=== PATIENT | male | born 1940 | race Caucasian/White ===

== ENCOUNTER 2020-03-24 13:12 | IRF | payer MEDICARE, SELFPAY ==
[2020-03-24 13:15] VITALS: BP 107/50; PULSE 70; RESP 18; TEMP 35.9; O2SAT 99; BMI 21.3
--- NOTE | 2020-03-24 13:28 | ADMGEN ---
This patient, Wagner Garland, was admitted to [facility] Room 223-01. Patient/family oriented to hospital policies and general routines including ID bracelet, bed and alarms, visiting hours, pain management, procedures, bathroom and other care routines, personal items, smoking policy, room service/diet, and visiting hours. Valuables list has been completed. Information on how to activate the Rapid Response Team has been discussed. Patient/Family are encouraged to report perceived risks to care and to ask questions if they do not understand what they are told or what they should do.
[2020-03-24 14:55] VITALS: BMI 21.3
[2020-03-24] MEDS: ALPRAZolam (*CRX) 0.5 MG TABLET 1 MG PO ×2 (18:06→20:18)
[2020-03-24] MEDS: APIXABAN 5 MG TABLET PO (18:08)
[2020-03-24] MEDS: ZOLPIDEM TARTRATE (*CRX) 5 MG TABLET 10 MG PO (20:18)
[2020-03-24] MEDS: LOPERAMIDE HCL 2 MG CAPSULE PO (20:18)
[2020-03-24] MEDS: ATORVASTATIN 40 MG TABLET PO (20:18)
[2020-03-24 22:00] VITALS: BP 122/46; PULSE 70; RESP 20; TEMP 36.7; O2SAT 100
[2020-03-25 04:58] LABS: Basophils Percent Auto 0.4 % (0.2-1.2); Eosinophils Absolute Auto 0.3 K/mm3 (0-0.3); Eosinophils Percent Auto 3.1 % (0-4.4); Hematocrit 33.3 % (42.0-52.0); Hemoglobin 10.8 g/dL (14.0-18.0); Immature Granulocyte Absolute 0.05 K/mm3 (0.00-0.031); Immature Granulocyte Percent A 0.5 % (0-0.5); Lymphocytes Absolute Auto 0.86 K/mm3 (0.9-3.2); Lymphocytes Percent Auto 8.7 % (18.3-44.2); Mean Corpuscular HGB Conc 32.4 g/dl (32-36); Mean Corpuscular Hemoglobin 30.7 pg (26-34); Mean Corpuscular Volume 94.6 fl (80-100); Monocytes Absolute Auto 1.2 K/mm3 (0.1-0.6); Neutrophils Absolute Auto 7.4 K/mm3 (1.3-6.7); Neutrophils Percent Auto 75.3 % (45.5-73.1); Platelet Count Result 144 k/mm3 (150-375); Red Blood Count 3.52 M/mm3 (4.6-6.20); Red Cell Distribution Width 13.3 % (11.5-14.5); White Blood Count 9.8 K/mm3 (4.5-10.0)
[2020-03-25 05:15] LABS: Potassium 3.6 mmol/L (3.4-5.0)
[2020-03-25 05:25] LABS: Anion Gap 8 mmol/L (8-16); Blood Urea Nitrogen 20 mg/dL (9-20); Calcium 8.7 mg/dL (8.4-10.2); Carbon Dioxide 29 mmol/L (22-30); Chloride 103 mmol/L (98-107); Estimated CRCL calculation 33 ml/min; Estimated Glomerular Filt Rate 49; Glucose 119 mg/dL (75-110); HDL Direct 28 mg/dL; Sodium 140 mmol/L (137-145)
[2020-03-25 05:49] LABS: LDL Cholesterol Direct 47 mg/dL
[2020-03-25 06:00] VITALS: BP 106/58; PULSE 100; RESP 16; TEMP 36.6; O2SAT 100
[2020-03-25 06:06] LABS: Cholesterol 102 mg/dL (0-200); Triglycerides 125 mg/dL (<150)
[2020-03-25] MEDS: LEVOTHYROXINE SODIUM 75 MCG TABLET PO (06:12)
[2020-03-25 08:33] VITALS: PULSE 68
[2020-03-25] MEDS: ALPRAZolam (*CRX) 0.5 MG TABLET 1 MG PO ×4 (08:33→20:44)
[2020-03-25] MEDS: AMIODARONE HCL 200 MG TABLET PO (08:33)
[2020-03-25] MEDS: APIXABAN 5 MG TABLET PO ×2 (08:34→17:00)
[2020-03-25 08:35] VITALS: PULSE 68
[2020-03-25] MEDS: buPROPion HCL XL (24 HR) 150 MG TABCR 300 MG PO (08:35)
[2020-03-25] MEDS: TAMSULOSIN HCL 0.4 MG CAPSULE PO (08:35)
[2020-03-25] MEDS: PANTOPRAZOLE 40 MG TABLET PO (08:35)
[2020-03-25] MEDS: DIGOXIN TAB 125 MCG TABLET PO (08:35)
--- NOTE | 2020-03-25 11:00 | PM.IMHP ---
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 The family reported the patient was found down near his bed was unable to communicate. The patient was in his usual state of health approximately 12 hours prior to presentation. 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 The upon arrival to the emergency room he had an initial NIH SS of 9. The CT showed no vessel occlusion or bleed an MRI was on tenable due to the patient having incompatible defibrillator. TPA was not administrated he was outside the window. Neurology was consulted and the patient was placed on aspirin atorvastatin and Lovenox. Apparently the patient was recently admitted to [facility] on March 04, 2020 for lower GI bleed hypotension and hemoglobin of 7.9. EGD showed no gastritis or active ulcers. Colonoscopy reported a possible ischemic colitis of the sigmoid colon. 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 His clinical presentation would feet and infarct in the left middle cerebral artery territory. Transthoracic echocardiogram showed distended left atrium and wall motion abnormalities. Cerebral angiogram did not show stenosis. The patient demonstrated mild expressive / receptive aphasia with fine word finding and difficulty answering high level questions. Upon admission the patient was initially unable to pass the bedside swallow evaluation however after speech and language pathologist evaluation and regular consistent diet with restriction of cardiac/ consistent carb is recommended as his A1c is 5.8. Speech therapy recommended to follow patient to assess diet tolerance and see speech and language deficits. Physical deficit and cold dysphagia a mild expressive receptive aphasia right-sided weakness cognitive deficit and speech deficit he is awake and alert oriented x3 the patient will be discharged T on Eliquis for DVT prophylaxis or for secondary stroke prevention The patient has not traveled outside the [place] contact with someone who is ill that has traveled outside the [place] in the past 21 days. The patient has not traveled to an area of the [place] that is experiencing known transmission of the Coronavirus and has not had close personal contact with anyone that has. The patient does not have a fever. The patient is not experiencing low respiratory illness symptoms. Therapy was initiated at the acute care facility and the patient was transferred to us from [facility] on March 24, 2020. The patient was examined by myself briefly many arrived yesterday however it complete examination was performed at 11:00 a.m. on March 25, 2020 The patient has had no major surgery in the last 10 days. The patient had falls in the past year. He the patient has had falls with injuries in the past year. No major surgeries had colonoscopy in February 2020 Past medical history, atrial fibrillation, hypertension, coronary artery disease, BPH, depression, pacemaker implantation, myocardial infarction, colitis. Past surgical history CABG Social history, patient lives with his and daughter in a one-story home with the basement and 2 steps to enter. Son lives nearby and can assist as needed. The patient was independent in all ADLs, IADLs LEs, and mobility without an assistive did a
[2020-03-25] MEDS: ACETAMINOPHEN 500 MG TABLET 1000 MG PO (12:06)
[2020-03-25] MEDS: BENZOCAINE/MENTHOL (*BKC) 18 EA LOZENGE 1 LOZENGE PO (12:13)
[2020-03-25 12:51] VITALS: BMI 21.3
[2020-03-25 14:00] VITALS: BP 103/50; PULSE 70; RESP 16; TEMP 36.4; O2SAT 100
--- NOTE | 2020-03-25 14:15 | PCDIET ---
Pt sleeping during time of second visit for stroke education; will revisit at later time.
--- NOTE | 2020-03-25 14:17 | PCNSR ---
On 03/25/20, the student, Trinidad Crabtree, provided care and completed [facility] documentation on this patient. I have reviewed the student's documentation and agree with the findings.
[2020-03-25 20:05] VITALS: BP 115/53; PULSE 70; RESP 18; TEMP 36.2; O2SAT 97
[2020-03-25] MEDS: ZOLPIDEM TARTRATE (*CRX) 5 MG TABLET 10 MG PO (20:44)
[2020-03-25] MEDS: ATORVASTATIN 40 MG TABLET PO (20:44)
[2020-03-26 04:55] VITALS: BP 101/33; PULSE 71; RESP 18; TEMP 36.3; O2SAT 99
[2020-03-26] MEDS: LEVOTHYROXINE SODIUM 75 MCG TABLET PO (06:01)
[2020-03-26] MEDS: PANTOPRAZOLE 40 MG TABLET PO (08:39)
[2020-03-26] MEDS: buPROPion HCL XL (24 HR) 150 MG TABCR 300 MG PO (08:39)
[2020-03-26] MEDS: APIXABAN 5 MG TABLET PO ×2 (08:39→17:36)
[2020-03-26] MEDS: TAMSULOSIN HCL 0.4 MG CAPSULE PO (08:39)
[2020-03-26] MEDS: ALPRAZolam (*CRX) 0.5 MG TABLET 1 MG PO ×4 (08:39→20:42)
[2020-03-26 14:00] VITALS: BP 112/58; PULSE 52; RESP 16; TEMP 36.5; O2SAT 94
--- NOTE | 2020-03-26 14:45 | PCNSR ---
On 03/26/20, the student, Trinidad Crabtree, provided care and completed [facility] documentation on this patient. I have reviewed the student's documentation and agree with the findings.
--- NOTE | 2020-03-26 15:49 | RPD ---
INDIVIDUALIZED PLAN OF CARE FOR Wagner Garland Brief Synthesis of Pre-Admission Screen, Post-Admission Evaluation and Therapy Evaluations: The patient presents to rehab with an ischemic stroke in left MCA territory. Comorbidities include hypokalemia, anemia, right-side weakness, dysphagia, aphasia, atrial fibrillation, hypertension, symptomatic LICA stenosis, CAD, BPH, depression, pacemaker placement, and anxiety.The complexity of the patient's medical management, nursing, and therapy needs require an inpatient rehab hospital stay with a physician-led interdisciplinary team approach. The patient?s needs will be best met in an intensive program vs. at a lower level of care. The patient requires physician services for neurology services, medical oversight, and coordination of care. Emotional needs will be monitored as depression is a common sequelae of stroke. The patient needs physician monitoring and treatment of anemia, hypokalemia, anemia, right-side weakness, dysphagia, aphasia, atrial fibrillation, hypertension, monitoring for adverse reactions to new medications, monitoring of infection. The patient requires nursing services for frequent neuro checks, anticoagulation therapy, medication management and education, pressure relief and skin care management, monitoring of labs, bowel and bladder training, diabetes management and education, IV administration, and fall/safety precautions. Deficits include:24-Hour Rehab Nursing Care, Nutrition Services, Occupational Therapy, Physical Therapy, Physician, Hotel Or Motel Manager, and Speech Therapy. Hotel Or Motel Manager/Case Management for: Discharge Planning and Patient/Family Counseling Physical Therapy: 5 days per week for 60 minutes. Treatments may include: Therapeutic Exercise, Gait Training, Neuromuscular Re-education, Transfer Training, Community Reintegration, Bed Mobility, Patient/Family Education, Wheelchair Mobility Group Therapy/Concurrent Therapy Rationales: -Improve attention span during functional activities in a distracted environment. -Enhance problem solving and/or adequate judgment skills during functional activities in a distracted environment. -Promote increased safety awareness in a distracted environment to reduce fall risk with functional tasks, transfers, and ambulation to allow a more safe, self-sufficient return to the home environment. -Improve dynamic balance skills to promote safety and independence with functional activities in a distracted environment for maximum gain. Occupational Therapy: 5 days per week for 60 minutes. Treatments may include: Therapeutic Exercise, Therapeutic Activity, Cognitive Training, Self-Care Transfer Training, Community Reintegration, Home Management, Patient/Family Education, Wheelchair Mobility Training, Energy Conservation Training Group Therapy/Concurrent Therapy Rationales: -Allow therapist to observe and teach generalization and carry-over of skills learned in individual therapy. -Enhance problem solving and sequencing skills during therapeutic activities in a distracted environment. -Promote increased safety awareness in a realistic setting to reduce fall risk with functional tasks due to visual and verbal distractions. -Increase functional level with ADLs, ADL transfers and use of adaptive equipment through therapeutic activities with others while promoting safety to allow a more safe, self-sufficient return home. Speech Therapy: 5 days per week for 60 minutes. Treatments may include: Dysphasia Therapy, Speech/Language/Communication Therapy, Cognitive Training, Patient/Family Education Group Therapy/Concurrent Therapy - Rationale: -Allow therapist to observe and teach generalization and carry-over of skills learned in individual therapy. -Improve comprehension skills with complex or abstract ideas through discussion in a realistic setting. -Enhance problem solving skills with complex issues during activities in a distracted environment. -Promote increased memory ski
[2020-03-26 20:17] VITALS: BP 116/51; PULSE 70; RESP 18; TEMP 36.3; O2SAT 98
[2020-03-26] MEDS: ZOLPIDEM TARTRATE (*CRX) 5 MG TABLET 10 MG PO (20:42)
[2020-03-26] MEDS: ATORVASTATIN 40 MG TABLET PO (20:42)
[2020-03-27 05:32] VITALS: BP 102/49; PULSE 70; RESP 18; TEMP 35.8; O2SAT 100
[2020-03-27] MEDS: LEVOTHYROXINE SODIUM 75 MCG TABLET PO (06:20)
[2020-03-27 08:43] VITALS: PULSE 70
[2020-03-27] MEDS: AMIODARONE HCL 200 MG TABLET PO (08:43)
[2020-03-27] MEDS: APIXABAN 5 MG TABLET PO ×2 (08:43→17:54)
[2020-03-27] MEDS: ALPRAZolam (*CRX) 0.5 MG TABLET 1 MG PO ×4 (08:43→20:56)
[2020-03-27 08:44] VITALS: PULSE 70
[2020-03-27] MEDS: PANTOPRAZOLE 40 MG TABLET PO (08:44)
[2020-03-27] MEDS: DIGOXIN TAB 125 MCG TABLET PO (08:44)
[2020-03-27] MEDS: TAMSULOSIN HCL 0.4 MG CAPSULE PO (08:44)
[2020-03-27] MEDS: buPROPion HCL XL (24 HR) 150 MG TABCR 300 MG PO (08:44)
--- NOTE | 2020-03-27 13:49 | WPDNEURORHBP ---
Subjective Date/time seen: 03/27/20 13:49 Interval history: this 80-year-old is here after having had a left hemispheric stroke his doing fairly well his weakness is improving he denies any headache nausea vomiting chest pain shortness of breath fever chills sore throat engage in therapy quite a bit Review of Systems Review of Systems: All systems reviewed & are unremarkable except as noted in HPI and below Functional Status Ambulation Ability Ability to Ambulate 10 Feet: Contact Guard Ability to Ambulate 50 Feet With 2 Turns: Contact Guard Ability to Ambulate 150 Feet: Contact Guard Ambulation Assistive Devices: Walker, Wheeled Exam Narrative: Exam Narrative: patient is awake alert well oriented follows all commands fairly well speech is improving right-sided weakness is improving eyes ears nose throat normal, neck is supple lungs are clear cardiovascular examination is stable stable extremities reveal no deformity Objective Data Vital Signs Vital Signs: Vital Signs - 24 hr 03/26/20 14:00 03/26/20 20:17 03/27/20 05:32 Temperature 36.5 C 36.3 C L 35.8 C L Pulse Rate 52 L 70 70 Respiratory Rate 16 18 18 Blood Pressure 112/58 L 116/51 L 102/49 L Pulse Oximetry 94 98 100 03/27/20 08:43 03/27/20 08:44 Temperature Pulse Rate 70 70 Respiratory Rate Blood Pressure Pulse Oximetry Intake/Output Intake/Output: Intake & Output 03/24/20 03/25/20 03/26/20 03/27/20 23:59 23:59 23:59 23:59 Intake Total 240 600 720 360 Balance 240 600 720 360 Meds/Results Medications: Active Medications Generic Name Dose Route Start Last Admin Trade Name Ezioq PRN Reason Stop Dose Admin Acetaminophen 1,000 mg 03/25/20 11:33 03/25/20 12:06 Acetaminophen 500 Mg Tablet PO 1,000 mg Q6H PRN Administration Mild Pain (1-3) or Fever Alprazolam 1 mg 03/24/20 17:00 03/27/20 12:42 Alprazolam (*Crx) 0.5 Mg Tablet PO 1 mg QID JULIA Administration Amiodarone HCl 200 mg 03/25/20 09:00 03/27/20 08:43 Amiodarone Hcl 200 Mg Tablet PO 200 mg Q48H JULIA Administration Apixaban 5 mg 03/24/20 17:00 03/27/20 08:43 Apixaban 5 Mg Tablet PO 5 mg BID JULIA Administration Atorvastatin Calcium 40 mg 03/24/20 21:00 03/26/20 20:42 Atorvastatin 40 Mg Tablet PO 40 mg HS JULIA Administration Benzocaine 1 lozenge 03/25/20 10:21 03/25/20 12:13 Benzocaine/Menthol (*Bkc) 18 Ea Lozenge PO 1 lozenge PRN PRN Administration Sore Throat Bupropion HCl 300 mg 03/25/20 09:00 03/27/20 08:44 Bupropion Hcl Xl (24 Hr) 150 Mg Tabcr PO 300 mg DAILY JULIA Administration Digoxin 125 mcg 03/25/20 09:00 03/27/20 08:44 Digoxin Tab 125 Mcg Tablet PO 125 mcg Q48H JULIA Administration Levothyroxine Sodium 75 mcg 03/25/20 06:30 03/27/20 06:20 Levothyroxine Sodium 75 Mcg Tablet PO 75 mcg DAILY@0630 JULIA Administration Loperamide HCl 2 mg 03/24/20 18:53 03/24/20 20:18 Loperamide Hcl 2 Mg Capsule PO 2 mg PRN PRN Administration Diarrhea Nitroglycerin 0.4 mg 03/24/20 15:00 Nitroglycerin Sl 0.4 Mg Tablet SUBLINGUAL PRN JULIA Pantoprazole Sodium 40 mg 03/25/20 09:00 03/27/20 08:44 Pantoprazole 40 Mg Tablet PO 40 mg DAILY JULIA Administration Polyethylene Glycol 17 gm 03/25/20 09:00 Polyethylene Glycol 3350 17 Gm Powd.Pack PO DAILY [facility] Senna 17.2 mg 03/25/20 09:00 03/25/20 08:35 Sennosides 8.6 Mg Tablet PO 04/24/20 09:01 Not Given DAILY [facility] Tamsulosin HCl 0.4 mg 03/25/20 09:00 03/27/20 08:44 Tamsulosin Hcl 0.4 Mg Capsule PO 0.4 mg DAILY JULIA Administration Zolpidem Tartrate 10 mg 03/24/20 21:00 03/26/20 20:42 Zolpidem Tartrate (*Crx) 5 Mg Tablet PO 10 mg HS JULIA Administration Progress Note: A&P Assessment and Plan (1) Coronary artery disease: Code(s): I25.10 - Atherosclerotic heart disease of [place] coronary artery without angina pectoris Status: Acute (2) Stenosis of left
[2020-03-27 14:00] VITALS: BP 115/50; PULSE 70; RESP 16; TEMP 36.3; O2SAT 100
[2020-03-27 20:00] VITALS: PULSE 70; RESP 17; O2SAT 100
[2020-03-27] MEDS: ATORVASTATIN 40 MG TABLET PO (20:52)
[2020-03-27] MEDS: ZOLPIDEM TARTRATE (*CRX) 5 MG TABLET 10 MG PO (20:56)
[2020-03-27 22:00] VITALS: BP 102/48; PULSE 70; RESP 17; TEMP 36; O2SAT 100
[2020-03-28 06:00] VITALS: BP 113/48; PULSE 70; RESP 18; TEMP 36.4; O2SAT 99
[2020-03-28] MEDS: LEVOTHYROXINE SODIUM 75 MCG TABLET PO (06:33)
[2020-03-28] MEDS: ALPRAZolam (*CRX) 0.5 MG TABLET 1 MG PO ×4 (08:54→20:26)
[2020-03-28] MEDS: buPROPion HCL XL (24 HR) 150 MG TABCR 300 MG PO (08:54)
[2020-03-28] MEDS: APIXABAN 5 MG TABLET PO ×2 (08:54→17:05)
[2020-03-28] MEDS: TAMSULOSIN HCL 0.4 MG CAPSULE PO (08:55)
[2020-03-28] MEDS: PANTOPRAZOLE 40 MG TABLET PO (08:55)
[2020-03-28 14:00] VITALS: BP 114/58; PULSE 70; RESP 18; TEMP 36.3; O2SAT 100
--- NOTE | 2020-03-28 16:32 | WPDNEURORHBP ---
Subjective Date/time seen: 03/28/20 16:32 Interval history: this pleasant 80-year-old is here after having had the left middle cerebral artery stroke and he is improving quite a bit and making excellent progress denies any headache nausea vomiting chest pain shortness of breath fever chills sore throat Review of Systems Review of Systems: All systems reviewed & are unremarkable except as noted in HPI and below Functional Status Ambulation Ability Ability to Ambulate 10 Feet: Standby Assistance Ability to Ambulate 50 Feet With 2 Turns: Standby Assistance Ability to Ambulate 150 Feet: Contact Guard Ambulation Assistive Devices: Walker, Wheeled Exam Narrative: Exam Narrative: patient is awake alert well oriented speech is improving right-sided weakness is improving examination of the chest started is abdomen is unremarkable extremities reveal no deformities Objective Data Vital Signs Vital Signs: Vital Signs - 24 hr 03/27/20 20:00 03/27/20 22:00 03/28/20 06:00 Temperature 36.0 C L 36.4 C L Pulse Rate 70 70 70 Respiratory Rate 17 17 18 Blood Pressure 102/48 L 113/48 L Pulse Oximetry 100 100 99 03/28/20 14:00 Temperature 36.3 C L Pulse Rate 70 Respiratory Rate 18 Blood Pressure 114/58 L Pulse Oximetry 100 Intake/Output Intake/Output: Intake & Output 03/25/20 03/26/20 03/27/20 03/28/20 23:59 23:59 23:59 23:59 Intake Total 600 720 960 900 Balance 600 720 960 900 Meds/Results Medications: Active Medications Generic Name Dose Route Start Last Admin Trade Name Freq PRN Reason Stop Dose Admin Acetaminophen 1,000 mg 03/25/20 11:33 03/25/20 12:06 Acetaminophen 500 Mg Tablet PO 1,000 mg Q6H PRN Administration Mild Pain (1-3) or Fever Alprazolam 1 mg 03/24/20 17:00 03/28/20 12:26 Alprazolam (*Crx) 0.5 Mg Tablet PO 1 mg QID JULIA Administration Amiodarone HCl 200 mg 03/25/20 09:00 03/27/20 08:43 Amiodarone Hcl 200 Mg Tablet PO 200 mg Q48H JULIA Administration Apixaban 5 mg 03/24/20 17:00 03/28/20 08:54 Apixaban 5 Mg Tablet PO 5 mg BID JULIA Administration Atorvastatin Calcium 40 mg 03/24/20 21:00 03/27/20 20:52 Atorvastatin 40 Mg Tablet PO 40 mg HS JULIA Administration Benzocaine 1 lozenge 03/25/20 10:21 03/25/20 12:13 Benzocaine/Menthol (*Bkc) 18 Ea Lozenge PO 1 lozenge PRN PRN Administration Sore Throat Bupropion HCl 300 mg 03/25/20 09:00 03/28/20 08:54 Bupropion Hcl Xl (24 Hr) 150 Mg Tabcr PO 300 mg DAILY JULIA Administration Digoxin 125 mcg 03/25/20 09:00 03/27/20 08:44 Digoxin Tab 125 Mcg Tablet PO 125 mcg Q48H JULIA Administration Levothyroxine Sodium 75 mcg 03/25/20 06:30 03/28/20 06:33 Levothyroxine Sodium 75 Mcg Tablet PO 75 mcg DAILY@0630 JULIA Administration Loperamide HCl 2 mg 03/24/20 18:53 03/24/20 20:18 Loperamide Hcl 2 Mg Capsule PO 2 mg PRN PRN Administration Diarrhea Nitroglycerin 0.4 mg 03/24/20 15:00 Nitroglycerin Sl 0.4 Mg Tablet SUBLINGUAL PRN JULIA Pantoprazole Sodium 40 mg 03/25/20 09:00 03/28/20 08:55 Pantoprazole 40 Mg Tablet PO 40 mg DAILY JULIA Administration Polyethylene Glycol 17 gm 03/25/20 09:00 Polyethylene Glycol 3350 17 Gm Powd.Pack PO DAILY [facility] Senna 17.2 mg 03/25/20 09:00 03/25/20 08:35 Sennosides 8.6 Mg Tablet PO 04/24/20 09:01 Not Given DAILY [facility] Tamsulosin HCl 0.4 mg 03/25/20 09:00 03/28/20 08:55 Tamsulosin Hcl 0.4 Mg Capsule PO 0.4 mg DAILY [facility] Administration Zolpidem Tartrate 10 mg 03/24/20 21:00 03/27/20 20:56 Zolpidem Tartrate (*Crx) 5 Mg Tablet PO 10 mg HS JULIA Administration Progress Note: A&P Assessment and Plan (1) Coronary artery disease: Code(s): I25.10 - Atherosclerotic heart disease of [place] coronary artery without angina pectoris Status: Acute (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: Code(s): I65.22 - Occlusion and stenosis of left
[2020-03-28 20:00] VITALS: PULSE 80; RESP 18; O2SAT 95
[2020-03-28] MEDS: ATORVASTATIN 40 MG TABLET PO (20:27)
[2020-03-28] MEDS: ZOLPIDEM TARTRATE (*CRX) 5 MG TABLET 10 MG PO (20:27)
[2020-03-28 22:00] VITALS: BP 122/72; PULSE 80; RESP 18; TEMP 36.8; O2SAT 95
[2020-03-29] MEDS: LEVOTHYROXINE SODIUM 75 MCG TABLET PO (05:55)
[2020-03-29 06:00] VITALS: BP 106/51; PULSE 70; RESP 16; TEMP 36.4; O2SAT 100
[2020-03-29 09:38] VITALS: PULSE 68
[2020-03-29] MEDS: AMIODARONE HCL 200 MG TABLET PO (09:38)
[2020-03-29] MEDS: PANTOPRAZOLE 40 MG TABLET PO (09:38)
[2020-03-29] MEDS: buPROPion HCL XL (24 HR) 150 MG TABCR 300 MG PO (09:38)
[2020-03-29] MEDS: DIGOXIN TAB 125 MCG TABLET PO (09:38)
[2020-03-29] MEDS: TAMSULOSIN HCL 0.4 MG CAPSULE PO (09:39)
[2020-03-29] MEDS: APIXABAN 5 MG TABLET PO ×2 (09:39→17:33)
[2020-03-29] MEDS: ALPRAZolam (*CRX) 0.5 MG TABLET 1 MG PO ×2 (09:40→13:01)
[2020-03-29 09:45] VITALS: PULSE 68; RESP 16; O2SAT 100
[2020-03-29 14:00] VITALS: BP 120/54; PULSE 69; RESP 18; TEMP 36.8; O2SAT 100
--- NOTE | 2020-03-29 15:35 | WPDNEURORHBP ---
Subjective Date/time seen: 03/29/20 15:35 Interval history: this 80-year-old is here after having had left hemispheric stroke with subtle aphasia and right-sided hemiparesis he is improving from both of these he is stable denies any headache nausea vomiting chest pain shortness of breath fever chills sore throat Review of Systems Review of Systems: All systems reviewed & are unremarkable except as noted in HPI and below Functional Status Ambulation Ability Ability to Ambulate 10 Feet: Contact Guard Ability to Ambulate 50 Feet With 2 Turns: Contact Guard Ability to Ambulate 150 Feet: Contact Guard Ambulation Assistive Devices: Walker, Wheeled Exam Narrative: Exam Narrative: the patient is awake alert well oriented with fluent speech with occasional subtle aphasic defects and improving right-sided hemiparesis ENT examination is normal eyes are normal neck is supple lungs are clear cardiovascular examination is stable abdomen is soft and nontender extremities reveal no deformities Objective Data Vital Signs Vital Signs: Vital Signs - 24 hr 03/28/20 20:00 03/28/20 22:00 03/29/20 06:00 Temperature 36.8 C 36.4 C L Pulse Rate 80 80 70 Respiratory Rate 18 18 16 Blood Pressure 122/72 106/51 L Pulse Oximetry 95 95 100 03/29/20 09:38 03/29/20 09:45 03/29/20 14:00 Temperature 36.8 C Pulse Rate 68 68 69 Respiratory Rate 16 18 Blood Pressure 120/54 L Pulse Oximetry 100 100 Intake/Output Intake/Output: Intake & Output 03/26/20 03/27/20 03/28/20 03/29/20 23:59 23:59 23:59 23:59 Intake Total 569 337 5879 1140 Balance 729 604 8199 1140 Meds/Results Medications: Active Medications Generic Name Dose Route Start Last Admin Trade Name Freq PRN Reason Stop Dose Admin Acetaminophen 1,000 mg 03/25/20 11:33 03/25/20 12:06 Acetaminophen 500 Mg Tablet PO 1,000 mg Q6H PRN Administration Mild Pain (1-3) or Fever Alprazolam 1 mg 03/24/20 17:00 03/29/20 13:01 Alprazolam (*Crx) 0.5 Mg Tablet PO 1 mg QID JULIA Administration Amiodarone HCl 200 mg 03/25/20 09:00 03/29/20 09:38 Amiodarone Hcl 200 Mg Tablet PO 200 mg Q48H JULIA Administration Apixaban 5 mg 03/24/20 17:00 03/29/20 09:39 Apixaban 5 Mg Tablet PO 5 mg BID JULIA Administration Atorvastatin Calcium 40 mg 03/24/20 21:00 03/28/20 20:27 Atorvastatin 40 Mg Tablet PO 40 mg HS JULIA Administration Benzocaine 1 lozenge 03/25/20 10:21 03/25/20 12:13 Benzocaine/Menthol (*Bkc) 18 Ea Lozenge PO 1 lozenge PRN PRN Administration Sore Throat Bupropion HCl 300 mg 03/25/20 09:00 03/29/20 09:38 Bupropion Hcl Xl (24 Hr) 150 Mg Tabcr PO 300 mg DAILY JULIA Administration Digoxin 125 mcg 03/25/20 09:00 03/29/20 09:38 Digoxin Tab 125 Mcg Tablet PO 125 mcg Q48H JULIA Administration Levothyroxine Sodium 75 mcg 03/25/20 06:30 03/29/20 05:55 Levothyroxine Sodium 75 Mcg Tablet PO 75 mcg DAILY@0630 JULIA Administration Loperamide HCl 2 mg 03/24/20 18:53 03/24/20 20:18 Loperamide Hcl 2 Mg Capsule PO 2 mg PRN PRN Administration Diarrhea Nitroglycerin 0.4 mg 03/24/20 15:00 Nitroglycerin Sl 0.4 Mg Tablet SUBLINGUAL PRN JULIA Pantoprazole Sodium 40 mg 03/25/20 09:00 03/29/20 09:38 Pantoprazole 40 Mg Tablet PO 40 mg DAILY JULIA Administration Polyethylene Glycol 17 gm 03/25/20 09:00 Polyethylene Glycol 3350 17 Gm Powd.Pack PO DAILY JULIA Senna 17.2 mg 03/25/20 09:00 03/25/20 08:35 Sennosides 8.6 Mg Tablet PO 04/24/20 09:01 Not Given DAILY JULIA Tamsulosin HCl 0.4 mg 03/25/20 09:00 03/29/20 09:39 Tamsulosin Hcl 0.4 Mg Capsule PO 0.4 mg DAILY JULIA Administration Zolpidem Tartrate 10 mg 03/24/20 21:00 03/28/20 20:27 Zolpidem Tartrate (*Crx) 5 Mg Tablet PO 10 mg HS JULIA Administration Progress Note: A&P Assessment and Plan (1) Coronary artery disease: Code(s): I25.10 - Atherosclerotic heart disease
[2020-03-29] MEDS: ALPRAZolam (*CRX) 0.5 MG TABLET PO ×2 (17:33→19:45)
[2020-03-29] MEDS: ATORVASTATIN 40 MG TABLET PO (19:45)
[2020-03-29] MEDS: ZOLPIDEM TARTRATE (*CRX) 5 MG TABLET 10 MG PO (19:46)
[2020-03-29 22:00] VITALS: BP 133/48; PULSE 70; RESP 19; TEMP 36.8; O2SAT 100
[2020-03-30 06:00] VITALS: BP 118/49; PULSE 70; RESP 18; TEMP 36.2; O2SAT 96
[2020-03-30] MEDS: LEVOTHYROXINE SODIUM 75 MCG TABLET PO (06:15)
[2020-03-30] MEDS: PANTOPRAZOLE 40 MG TABLET PO (08:19)
[2020-03-30] MEDS: TAMSULOSIN HCL 0.4 MG CAPSULE PO (08:19)
[2020-03-30] MEDS: APIXABAN 5 MG TABLET PO ×2 (08:19→16:56)
[2020-03-30] MEDS: ALPRAZolam (*CRX) 0.5 MG TABLET PO ×4 (08:19→21:08)
[2020-03-30] MEDS: buPROPion HCL XL (24 HR) 150 MG TABCR 300 MG PO (08:19)
--- NOTE | 2020-03-30 13:45 | PCNFU ---
Nutrition Follow-Up Complete: Inadequate nutrient intake related to difficulty with motor skills and fluctuating appetite, as evidenced by pt interview and nurse records of intake. Pt will consume at least 80% or more of all snacks and meals to maintain weight and build strength. Goal: in progress Pt current nutrition is regular diet, which is appropriate. Nutrition recommendation: continue frozen nutritional treat supplement BID often as requested by pt to support caloric goal. Last recorded weight is 63.7 kg. Recommend updating recording. Bowel Motility: last BM recorded 03/29 from nurse spreadsheet. Labs Reviewed: No new labs from 03/25, recommend updating. Meds Noted: Synthroid, Ambien, Loperamide, Lipitor, Xanax, Eliquis Additional Notes: pt integumentary integrity is WNL Monitor pt intake record, and follow up in 7 days.
[2020-03-30 14:00] VITALS: BP 113/55; PULSE 70; RESP 18; TEMP 36.3; O2SAT 97
--- NOTE | 2020-03-30 14:55 | PCPTNOTE ---
Wagner Garland was evaluated for a wheeled walker on 03/30/2020 by this physical therapist contract administrative assistant. The wheeled walker will resolve patient's mobility limitations and will be used for ADL's within the home. The patient can safely use the wheeled walker. ?The wheeled walker will resolve the patient?s mobility deficits, including decreased endurance, strength, balance, and safety awareness. Autumn Montiel, [employer]
--- NOTE | 2020-03-30 15:04 | PCNSR ---
On 03/30/20, the student, Trinidad Crabtree, provided care and completed [facility] documentation on this patient. I have reviewed the student's documentation and agree with the findings.
[2020-03-30 20:00] VITALS: O2SAT 99
[2020-03-30 20:16] VITALS: BP 117/50; PULSE 70; RESP 18; TEMP 35.9; O2SAT 99
[2020-03-30] MEDS: ATORVASTATIN 40 MG TABLET PO (21:06)
[2020-03-30] MEDS: ZOLPIDEM TARTRATE (*CRX) 5 MG TABLET 10 MG PO (21:08)
[2020-03-31 05:22] VITALS: BP 113/51; PULSE 70; RESP 20; TEMP 35.6; O2SAT 98
[2020-03-31] MEDS: LEVOTHYROXINE SODIUM 75 MCG TABLET PO (06:30)
[2020-03-31] MEDS: ALPRAZolam (*CRX) 0.5 MG TABLET PO ×4 (10:48→21:15)
[2020-03-31 10:49] VITALS: PULSE 70
[2020-03-31] MEDS: AMIODARONE HCL 200 MG TABLET PO (10:49)
[2020-03-31 10:50] VITALS: PULSE 70
[2020-03-31] MEDS: APIXABAN 5 MG TABLET PO ×2 (10:50→17:22)
[2020-03-31] MEDS: DIGOXIN TAB 125 MCG TABLET PO (10:50)
[2020-03-31] MEDS: buPROPion HCL XL (24 HR) 150 MG TABCR 300 MG PO (10:50)
[2020-03-31] MEDS: PANTOPRAZOLE 40 MG TABLET PO (10:51)
[2020-03-31] MEDS: TAMSULOSIN HCL 0.4 MG CAPSULE PO (10:51)
--- NOTE | 2020-03-31 12:19 | WPDNEURORHBP ---
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 and right-sided weakness however still needs assistance in the activities of daily living denies any headache nausea vomiting chest pain shortness of breath fever chills sore throat he is walking 300 feet with a walker Review of Systems Review of Systems: All systems reviewed & are unremarkable except as noted in HPI and below Functional Status Ambulation Ability Ability to Ambulate 10 Feet: Standby Assistance Ability to Ambulate 50 Feet With 2 Turns: Standby Assistance Ability to Ambulate 150 Feet: Standby Assistance Ambulation Assistive Devices: Walker, Wheeled Transfers Ability Ability to Transfer In/Out of Chair: Contact Guard Exam Narrative: Exam Narrative: patient is awake alert well oriented follows all commands neck is supple lungs are clear to auscultation cardiovascular examination stable vital signs stable right-sided weakness is improving and speech obviously has significantly improved Abdomen soft nontender and extremities reveal no deformity Objective Data Vital Signs Vital Signs: Vital Signs - 24 hr 03/30/20 14:00 03/30/20 20:00 03/30/20 20:16 Temperature 36.3 C L 35.9 C L Pulse Rate 70 70 Respiratory Rate 18 18 Blood Pressure 113/55 L 117/50 L Pulse Oximetry 97 99 99 03/31/20 05:22 03/31/20 10:49 03/31/20 10:50 Temperature 35.6 C L Pulse Rate 70 70 70 Respiratory Rate 20 Blood Pressure 113/51 L Pulse Oximetry 98 Intake/Output Intake/Output: Intake & Output 03/28/20 03/29/20 03/30/20 03/31/20 23:59 23:59 23:59 23:59 Intake Total 1380 1380 720 360 Balance 1380 1380 720 360 Meds/Results Medications: Active Medications Generic Name Dose Route Start Last Admin Trade Name Freq PRN Reason Stop Dose Admin Acetaminophen 1,000 mg 03/25/20 11:33 03/25/20 12:06 Acetaminophen 500 Mg Tablet PO 1,000 mg Q6H PRN Administration Mild Pain (1-3) or Fever Alprazolam 0.5 mg 03/29/20 17:00 03/31/20 10:48 Alprazolam (*Crx) 0.5 Mg Tablet PO 0.5 mg QID JULIA Administration Amiodarone HCl 200 mg 03/25/20 09:00 03/31/20 10:49 Amiodarone Hcl 200 Mg Tablet PO 200 mg Q48H JULIA Administration Apixaban 5 mg 03/24/20 17:00 03/31/20 10:50 Apixaban 5 Mg Tablet PO 5 mg BID JULIA Administration Atorvastatin Calcium 40 mg 03/24/20 21:00 03/30/20 21:06 Atorvastatin 40 Mg Tablet PO 40 mg HS JULIA Administration Benzocaine 1 lozenge 03/25/20 10:21 03/25/20 12:13 Benzocaine/Menthol (*Bkc) 18 Ea Lozenge PO 1 lozenge PRN PRN Administration Sore Throat Bupropion HCl 300 mg 03/25/20 09:00 03/31/20 10:50 Bupropion Hcl Xl (24 Hr) 150 Mg Tabcr PO 300 mg DAILY JULIA Administration Digoxin 125 mcg 03/25/20 09:00 03/31/20 10:50 Digoxin Tab 125 Mcg Tablet PO 125 mcg Q48H JULIA Administration Levothyroxine Sodium 75 mcg 03/25/20 06:30 03/30/20 06:15 Levothyroxine Sodium 75 Mcg Tablet PO 75 mcg DAILY@0630 JULIA Administration Loperamide HCl 2 mg 03/24/20 18:53 03/24/20 20:18 Loperamide Hcl 2 Mg Capsule PO 2 mg PRN PRN Administration Diarrhea Nitroglycerin 0.4 mg 03/24/20 15:00 Nitroglycerin Sl 0.4 Mg Tablet SUBLINGUAL PRN JULIA Pantoprazole Sodium 40 mg 03/25/20 09:00 03/31/20 10:51 Pantoprazole 40 Mg Tablet PO 40 mg DAILY JULIA Administration Polyethylene Glycol 17 gm 03/25/20 09:00 Polyethylene Glycol 3350 17 Gm Powd.Pack PO DAILY [facility] Senna 17.2 mg 03/25/20 09:00 03/25/20 08:35 Sennosides 8.6 Mg Tablet PO 04/24/20 09:01 Not Given DAILY [facility] Tamsulosin HCl 0.4 mg 03/25/20 09:00 03/31/20 10:51 Tamsulosin Hcl 0.4 Mg Capsule PO 0.4 mg DAILY JULIA Administration Zolpidem Tartrate 10 mg 03/24/20 21:00 03/30/20 21:08 Zolpidem Tartrate (*Crx) 5 Mg Tablet PO 10 mg HS JULIA Adm
[2020-03-31 14:00] VITALS: BP 119/62; PULSE 82; RESP 18; TEMP 36.3; O2SAT 96
[2020-03-31] MEDS: ATORVASTATIN 40 MG TABLET PO (21:15)
[2020-03-31] MEDS: ZOLPIDEM TARTRATE (*CRX) 5 MG TABLET 10 MG PO (21:15)
[2020-03-31 22:00] VITALS: BP 122/50; PULSE 70; RESP 19; TEMP 36.2; O2SAT 100
[2020-04-01 05:26] LABS: Basophils Absolute Auto 0.1 K/mm3 (0.0-0.1); Basophils Percent Auto 0.7 % (0.2-1.2); Eosinophils Absolute Auto 0.6 K/mm3 (0-0.3); Eosinophils Percent Auto 7.1 % (0-4.4); Hematocrit 31.4 % (42.0-52.0); Hemoglobin 10.1 g/dL (14.0-18.0); Immature Granulocyte Absolute 0.14 K/mm3 (0.00-0.031); Immature Granulocyte Percent A 1.7 % (0-0.5); Lymphocytes Absolute Auto 1.21 K/mm3 (0.9-3.2); Mean Corpuscular HGB Conc 32.2 g/dl (32-36); Mean Corpuscular Hemoglobin 30.1 pg (26-34); Mean Corpuscular Volume 93.5 fl (80-100); Mean Platelet Volume 8.7 fl (7.4-10.4); Monocytes Absolute Auto 0.8 K/mm3 (0.1-0.6); Monocytes Percent Auto 9.3 % (2.6-8.5); Neutrophils Absolute Auto 5.3 K/mm3 (1.3-6.7); Neutrophils Percent Auto 66.2 % (45.5-73.1); Platelet Count Result 116 k/mm3 (150-375); Red Blood Count 3.36 M/mm3 (4.6-6.20); Red Cell Distribution Width 13.6 % (11.5-14.5); White Blood Count 8.1 K/mm3 (4.5-10.0)
[2020-04-01 06:00] VITALS: BP 111/49; PULSE 70; RESP 18; TEMP 36.2; O2SAT 98
[2020-04-01] MEDS: LEVOTHYROXINE SODIUM 75 MCG TABLET PO (06:08)
[2020-04-01 07:01] LABS: Anion Gap 6 mmol/L (8-16); Blood Urea Nitrogen 27 mg/dL (9-20); Calcium 8.6 mg/dL (8.4-10.2); Carbon Dioxide 31 mmol/L (22-30); Chloride 104 mmol/L (98-107); Estimated CRCL calculation 41 ml/min; Estimated Glomerular Filt Rate > 60; Glucose 102 mg/dL (75-110); Sodium 141 mmol/L (137-145)
[2020-04-01] MEDS: buPROPion HCL XL (24 HR) 150 MG TABCR 300 MG PO (10:16)
[2020-04-01] MEDS: APIXABAN 5 MG TABLET PO ×2 (10:17→17:54)
[2020-04-01] MEDS: PANTOPRAZOLE 40 MG TABLET PO (10:17)
[2020-04-01] MEDS: TAMSULOSIN HCL 0.4 MG CAPSULE PO (10:18)
[2020-04-01] MEDS: ALPRAZolam (*CRX) 0.5 MG TABLET PO ×4 (10:19→19:47)
[2020-04-01 10:20] VITALS: PULSE 70; RESP 18; O2SAT 98
--- NOTE | 2020-04-01 12:06 | WPDNEURORHBP ---
Subjective Date/time seen: 04/01/20 12:06 Interval history: this 80-year-old gentleman is here status post left hemispheric stroke with significantly improved speech defect and right-sided weakness for which he is working on he does have underlying medical rather cardiac issues including the pacemaker implantation atrial fibrillation for which he is on anti arrhythmic drugs including the digoxin Patient is able to tolerate the medications and looking forward to be going home improving overall he denies any headache nausea vomiting chest pain shortness of breath fever chills sore throat Review of Systems Review of Systems: All systems reviewed & are unremarkable except as noted in HPI and below Functional Status Ambulation Ability Ability to Ambulate 10 Feet: Standby Assistance Ability to Ambulate 50 Feet With 2 Turns: Standby Assistance Ability to Ambulate 150 Feet: Standby Assistance Ambulation Assistive Devices: Walker, Wheeled Transfers Ability Ability to Transfer In/Out of Chair: Contact Guard Exam Narrative: Exam Narrative: patient remains awake alert well oriented time place and person speech is significantly improved right-sided hemiparesis improving his cardiac status is stable he has a paced rhythm abdomen is soft nontender extremities is reveal no deformities head and neck region is unremarkable Objective Data Vital Signs Vital Signs: Vital Signs - 24 hr 03/31/20 14:00 03/31/20 22:00 04/01/20 06:00 Temperature 36.3 C L 36.2 C L 36.2 C L Pulse Rate 82 70 70 Respiratory Rate 18 19 18 Blood Pressure 119/62 122/50 L 111/49 L Pulse Oximetry 96 100 98 Intake/Output Intake/Output: Intake & Output 03/29/20 03/30/20 03/31/20 04/01/20 23:59 23:59 23:59 23:59 Intake Total 1380 720 840 60 Balance 1380 720 840 60 Meds/Results Medications: Active Medications Generic Name Dose Route Start Last Admin Trade Name Freq PRN Reason Stop Dose Admin Acetaminophen 1,000 mg 03/25/20 11:33 03/25/20 12:06 Acetaminophen 500 Mg Tablet PO 1,000 mg Q6H PRN Administration Mild Pain (1-3) or Fever Alprazolam 0.5 mg 03/29/20 17:00 04/01/20 10:19 Alprazolam (*Crx) 0.5 Mg Tablet PO 0.5 mg QID JULIA Administration Amiodarone HCl 200 mg 03/25/20 09:00 03/31/20 10:49 Amiodarone Hcl 200 Mg Tablet PO 200 mg Q48H JULIA Administration Apixaban 5 mg 03/24/20 17:00 04/01/20 10:17 Apixaban 5 Mg Tablet PO 5 mg BID JULIA Administration Atorvastatin Calcium 40 mg 03/24/20 21:00 03/31/20 21:15 Atorvastatin 40 Mg Tablet PO 40 mg HS JULIA Administration Benzocaine 1 lozenge 03/25/20 10:21 03/25/20 12:13 Benzocaine/Menthol (*Bkc) 18 Ea Lozenge PO 1 lozenge PRN PRN Administration Sore Throat Bupropion HCl 300 mg 03/25/20 09:00 04/01/20 10:16 Bupropion Hcl Xl (24 Hr) 150 Mg Tabcr PO 300 mg DAILY JULIA Administration Digoxin 125 mcg 03/25/20 09:00 03/31/20 10:50 Digoxin Tab 125 Mcg Tablet PO 125 mcg Q48H JULIA Administration Levothyroxine Sodium 75 mcg 03/25/20 06:30 04/01/20 06:08 Levothyroxine Sodium 75 Mcg Tablet PO 75 mcg DAILY@0630 JULIA Administration Loperamide HCl 2 mg 03/24/20 18:53 03/24/20 20:18 Loperamide Hcl 2 Mg Capsule PO 2 mg PRN PRN Administration Diarrhea Nitroglycerin 0.4 mg 03/24/20 15:00 Nitroglycerin Sl 0.4 Mg Tablet SUBLINGUAL PRN JULIA Pantoprazole Sodium 40 mg 03/25/20 09:00 04/01/20 10:17 Pantoprazole 40 Mg Tablet PO 40 mg DAILY JULIA Administration Polyethylene Glycol 17 gm 03/25/20 09:00 Polyethylene Glycol 3350 17 Gm Powd.Pack PO DAILY [facility] Senna 17.2 mg 03/25/20 09:00 03/25/20 08:35 Sennosides 8.6 Mg Tablet PO 04/24/20 09:01 Not Given DAILY [facility] Tamsulosin HCl 0.4 mg 03/25/20 09:00 04/01/20 10:18 Tamsulosin Hcl 0.4 Mg Capsule PO 0.4 mg DAILY JULIA Administration Zolpidem Tartrate 10 mg 03/24/20 21:00 03/31/20 21:15 Zolpidem Tartrate (*Crx) 5
[2020-04-01 14:00] VITALS: BP 133/52; PULSE 70; RESP 20; TEMP 36.1; O2SAT 100
[2020-04-01] MEDS: ATORVASTATIN 40 MG TABLET PO (19:48)
[2020-04-01] MEDS: ZOLPIDEM TARTRATE (*CRX) 5 MG TABLET 10 MG PO (19:50)
[2020-04-01 22:00] VITALS: BP 124/52; PULSE 70; RESP 18; TEMP 36.1; O2SAT 99
[2020-04-02] MEDS: LEVOTHYROXINE SODIUM 75 MCG TABLET PO (05:20)
[2020-04-02 06:00] VITALS: BP 107/49; PULSE 70; RESP 19; TEMP 36.2; O2SAT 97
[2020-04-02 06:33] LABS: Glucose Point of Care 97 (65-105)
[2020-04-02 08:22] VITALS: PULSE 72
[2020-04-02] MEDS: TAMSULOSIN HCL 0.4 MG CAPSULE PO (08:22)
[2020-04-02] MEDS: ALPRAZolam (*CRX) 0.5 MG TABLET PO ×4 (08:22→21:26)
[2020-04-02] MEDS: DIGOXIN TAB 125 MCG TABLET PO (08:22)
[2020-04-02] MEDS: buPROPion HCL XL (24 HR) 150 MG TABCR 300 MG PO (08:22)
[2020-04-02] MEDS: AMIODARONE HCL 200 MG TABLET PO (08:22)
[2020-04-02] MEDS: PANTOPRAZOLE 40 MG TABLET PO (08:22)
[2020-04-02] MEDS: APIXABAN 5 MG TABLET PO ×2 (08:23→17:13)
[2020-04-02 14:00] VITALS: BP 122/58; PULSE 70; RESP 18; TEMP 35.9; O2SAT 100
[2020-04-02] MEDS: ATORVASTATIN 40 MG TABLET PO (21:26)
[2020-04-02] MEDS: ZOLPIDEM TARTRATE (*CRX) 5 MG TABLET 10 MG PO (21:26)
[2020-04-02 22:00] VITALS: BP 126/53; PULSE 70; RESP 18; TEMP 36; O2SAT 100
[2020-04-03] MEDS: LEVOTHYROXINE SODIUM 75 MCG TABLET PO (05:47)
[2020-04-03 06:00] VITALS: BP 106/48; PULSE 69; RESP 19; TEMP 36.1; O2SAT 98
[2020-04-03] MEDS: ALPRAZolam (*CRX) 0.5 MG TABLET PO ×4 (08:30→20:51)
[2020-04-03] MEDS: APIXABAN 5 MG TABLET PO ×2 (08:30→17:35)
[2020-04-03] MEDS: buPROPion HCL XL (24 HR) 150 MG TABCR 300 MG PO (08:30)
[2020-04-03] MEDS: TAMSULOSIN HCL 0.4 MG CAPSULE PO (08:31)
[2020-04-03] MEDS: PANTOPRAZOLE 40 MG TABLET PO (08:31)
--- NOTE | 2020-04-03 11:07 | WPDNEURORHBP ---
Subjective Date/time seen: 04/03/20 11:07 Interval history: this very pleasant 80-year-old is here after having had a left hemispheric stroke with significantly improved aphasic defect and improving right-sided hemiparesis is doing fairly well denies any headache nausea vomiting chest pain shortness of breath fever chills sore throat Review of Systems Review of Systems: All systems reviewed & are unremarkable except as noted in HPI and below Functional Status Ambulation Ability Ability to Ambulate 10 Feet: Standby Assistance Ability to Ambulate 50 Feet With 2 Turns: Standby Assistance Ability to Ambulate 150 Feet: Standby Assistance Ambulation Assistive Devices: Walker, Wheeled Transfers Ability Ability to Transfer In/Out of Chair: Standby Assistance Exam Narrative: Exam Narrative: patient is awake and alert will oriented in time place and person speech and language functions normal cranial nerve examination is normal right-sided hemiparesis improving Ry is no sore normal neck is supple lungs are clear cardiovascular exam assisted stable abdomen is soft not tender extremities reveal no deformity Objective Data Vital Signs Vital Signs: Vital Signs - 24 hr 04/02/20 14:00 04/02/20 22:00 04/03/20 06:00 Temperature 35.9 C L 36.0 C L 36.1 C L Pulse Rate 70 70 69 Respiratory Rate 18 18 19 Blood Pressure 122/58 L 126/53 L 106/48 L Pulse Oximetry 100 100 98 Intake/Output Intake/Output: Intake & Output 03/31/20 04/01/20 04/02/20 04/03/20 23:59 23:59 23:59 23:59 Intake Total 840 400 720 240 Balance 840 400 720 240 Meds/Results Medications: Active Medications Generic Name Dose Route Start Last Admin Trade Name Freq PRN Reason Stop Dose Admin Acetaminophen 1,000 mg 03/25/20 11:33 03/25/20 12:06 Acetaminophen 500 Mg Tablet PO 1,000 mg Q6H PRN Administration Mild Pain (1-3) or Fever Alprazolam 0.5 mg 03/29/20 17:00 04/03/20 08:30 Alprazolam (*Crx) 0.5 Mg Tablet PO 0.5 mg QID JULIA Administration Amiodarone HCl 200 mg 03/25/20 09:00 04/02/20 08:22 Amiodarone Hcl 200 Mg Tablet PO 200 mg Q48H JULIA Administration Apixaban 5 mg 03/24/20 17:00 04/03/20 08:30 Apixaban 5 Mg Tablet PO 5 mg BID JULIA Administration Atorvastatin Calcium 40 mg 03/24/20 21:00 04/02/20 21:26 Atorvastatin 40 Mg Tablet PO 40 mg HS JULIA Administration Benzocaine 1 lozenge 03/25/20 10:21 03/25/20 12:13 Benzocaine/Menthol (*Bkc) 18 Ea Lozenge PO 1 lozenge PRN PRN Administration Sore Throat Bupropion HCl 300 mg 03/25/20 09:00 04/03/20 08:30 Bupropion Hcl Xl (24 Hr) 150 Mg Tabcr PO 300 mg DAILY JULIA Administration Digoxin 125 mcg 03/25/20 09:00 04/02/20 08:22 Digoxin Tab 125 Mcg Tablet PO 125 mcg Q48H JULIA Administration Levothyroxine Sodium 75 mcg 03/25/20 06:30 04/03/20 05:47 Levothyroxine Sodium 75 Mcg Tablet PO 75 mcg DAILY@0630 JULIA Administration Loperamide HCl 2 mg 03/24/20 18:53 03/24/20 20:18 Loperamide Hcl 2 Mg Capsule PO 2 mg PRN PRN Administration Diarrhea Nitroglycerin 0.4 mg 03/24/20 15:00 Nitroglycerin Sl 0.4 Mg Tablet SUBLINGUAL PRN JULIA Pantoprazole Sodium 40 mg 03/25/20 09:00 04/03/20 08:31 Pantoprazole 40 Mg Tablet PO 40 mg DAILY JULIA Administration Polyethylene Glycol 17 gm 03/25/20 09:00 Polyethylene Glycol 3350 17 Gm Powd.Pack PO DAILY JULIA Senna 17.2 mg 03/25/20 09:00 03/25/20 08:35 Sennosides 8.6 Mg Tablet PO 04/24/20 09:01 Not Given DAILY JULIA Tamsulosin HCl 0.4 mg 03/25/20 09:00 04/03/20 08:31 Tamsulosin Hcl 0.4 Mg Capsule PO 0.4 mg DAILY JULIA Administration Zolpidem Tartrate 10 mg 03/24/20 21:00 04/02/20 21:26 Zolpidem Tartrate (*Crx) 5 Mg Tablet PO 10 mg HS JULIA Administration Progress Note: A&P Assessment and Plan (1) Coronary artery disease: Code(s): I25.10 - Atherosclerotic heart disease of [place] coronary arter
[2020-04-03 14:00] VITALS: BP 118/71; PULSE 70; RESP 20; TEMP 35.9; O2SAT 100
[2020-04-03] MEDS: ATORVASTATIN 40 MG TABLET PO (20:50)
[2020-04-03] MEDS: ZOLPIDEM TARTRATE (*CRX) 5 MG TABLET 10 MG PO (20:51)
[2020-04-03 20:53] VITALS: BP 120/54; PULSE 70; RESP 18; TEMP 36.3; O2SAT 100
[2020-04-04] MEDS: LEVOTHYROXINE SODIUM 75 MCG TABLET PO (05:48)
[2020-04-04 06:00] VITALS: BP 108/48; PULSE 70; RESP 16; TEMP 36.4; O2SAT 99
[2020-04-04 08:00] VITALS: PULSE 70; RESP 18; O2SAT 100
[2020-04-04] MEDS: buPROPion HCL XL (24 HR) 150 MG TABCR 300 MG PO (09:42)
[2020-04-04] MEDS: TAMSULOSIN HCL 0.4 MG CAPSULE PO (09:42)
[2020-04-04 09:43] VITALS: PULSE 70
[2020-04-04] MEDS: AMIODARONE HCL 200 MG TABLET PO (09:43)
[2020-04-04] MEDS: APIXABAN 5 MG TABLET PO ×2 (09:43→17:26)
[2020-04-04] MEDS: DIGOXIN TAB 125 MCG TABLET PO (09:43)
[2020-04-04] MEDS: PANTOPRAZOLE 40 MG TABLET PO (09:43)
[2020-04-04] MEDS: ALPRAZolam (*CRX) 0.5 MG TABLET PO ×4 (09:46→20:06)
[2020-04-04 14:00] VITALS: BP 114/43; PULSE 70; RESP 18; TEMP 36.2; O2SAT 100
--- NOTE | 2020-04-04 14:08 | WPDNEURORHBP ---
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 continues to show signs of improvement in right-sided hemiparesis and dysphasia, hemoglobin today is 8.1 Review of Systems Review of Systems: All systems reviewed & are unremarkable except as noted in HPI and below Functional Status Ambulation Ability Ability to Ambulate 10 Feet: Standby Assistance Ability to Ambulate 50 Feet With 2 Turns: Standby Assistance Ability to Ambulate 150 Feet: Standby Assistance Ambulation Assistive Devices: Walker, Wheeled Transfers Ability Ability to Transfer In/Out of Chair: Standby Assistance Exam Narrative: Exam Narrative: on examination today he is awake alert oriented in time and place,speech is fairly normal, heart regular, lungs clear to auscultation, no rhonchi or crepitations ,abdomen soft with no organomegaly, and neuro examination reveals him to have right-sided deficit which is improving Objective Data Vital Signs Vital Signs: Vital Signs - 24 hr 04/03/20 20:53 04/04/20 06:00 04/04/20 09:43 Temperature 36.3 C L 36.4 C Pulse Rate 70 70 70 Respiratory Rate 18 16 Blood Pressure 120/54 L 108/48 L Pulse Oximetry 100 99 Intake/Output Intake/Output: Intake & Output 04/01/20 04/02/20 04/03/20 04/04/20 23:59 23:59 23:59 23:59 Intake Total 400 720 720 440 Balance 400 720 720 440 Meds/Results Medications: Active Medications Generic Name Dose Route Start Last Admin Trade Name Freq PRN Reason Stop Dose Admin Acetaminophen 1,000 mg 03/25/20 11:33 03/25/20 12:06 Acetaminophen 500 Mg Tablet PO 1,000 mg Q6H PRN Administration Mild Pain (1-3) or Fever Alprazolam 0.5 mg 03/29/20 17:00 04/04/20 09:46 Alprazolam (*Crx) 0.5 Mg Tablet PO 0.5 mg QID JULIA Administration Amiodarone HCl 200 mg 03/25/20 09:00 04/04/20 09:43 Amiodarone Hcl 200 Mg Tablet PO 200 mg Q48H JULIA Administration Apixaban 5 mg 03/24/20 17:00 04/04/20 09:43 Apixaban 5 Mg Tablet PO 5 mg BID JULIA Administration Atorvastatin Calcium 40 mg 03/24/20 21:00 04/03/20 20:50 Atorvastatin 40 Mg Tablet PO 40 mg HS JULIA Administration Benzocaine 1 lozenge 03/25/20 10:21 03/25/20 12:13 Benzocaine/Menthol (*Bkc) 18 Ea Lozenge PO 1 lozenge PRN PRN Administration Sore Throat Bupropion HCl 300 mg 03/25/20 09:00 04/04/20 09:42 Bupropion Hcl Xl (24 Hr) 150 Mg Tabcr PO 300 mg DAILY JULIA Administration Digoxin 125 mcg 03/25/20 09:00 04/04/20 09:43 Digoxin Tab 125 Mcg Tablet PO 125 mcg Q48H JULIA Administration Levothyroxine Sodium 75 mcg 03/25/20 06:30 04/04/20 05:48 Levothyroxine Sodium 75 Mcg Tablet PO 75 mcg DAILY@0630 JULIA Administration Loperamide HCl 2 mg 03/24/20 18:53 03/24/20 20:18 Loperamide Hcl 2 Mg Capsule PO 2 mg PRN PRN Administration Diarrhea Nitroglycerin 0.4 mg 03/24/20 15:00 Nitroglycerin Sl 0.4 Mg Tablet SUBLINGUAL PRN JULIA Pantoprazole Sodium 40 mg 03/25/20 09:00 04/04/20 09:43 Pantoprazole 40 Mg Tablet PO 40 mg DAILY JULIA Administration Polyethylene Glycol 17 gm 03/25/20 09:00 Polyethylene Glycol 3350 17 Gm Powd.Pack PO DAILY [facility] Senna 17.2 mg 03/25/20 09:00 03/25/20 08:35 Sennosides 8.6 Mg Tablet PO 04/24/20 09:01 Not Given DAILY [facility] Tamsulosin HCl 0.4 mg 03/25/20 09:00 04/04/20 09:42 Tamsulosin Hcl 0.4 Mg Capsule PO 0.4 mg DAILY JULIA Administration Zolpidem Tartrate 10 mg 03/24/20 21:00 04/03/20 20:51
[2020-04-04] MEDS: ATORVASTATIN 40 MG TABLET PO (20:06)
[2020-04-04] MEDS: ZOLPIDEM TARTRATE (*CRX) 5 MG TABLET 10 MG PO (20:06)
[2020-04-04 22:00] VITALS: BP 132/47; PULSE 71; RESP 21; TEMP 36.3; O2SAT 100
[2020-04-05 06:00] VITALS: BP 112/47; PULSE 70; RESP 20; TEMP 36.8; O2SAT 98
[2020-04-05] MEDS: LEVOTHYROXINE SODIUM 75 MCG TABLET PO (06:09)
[2020-04-05 08:00] VITALS: PULSE 70; RESP 20; O2SAT 98
[2020-04-05] MEDS: TAMSULOSIN HCL 0.4 MG CAPSULE PO (09:28)
[2020-04-05] MEDS: APIXABAN 5 MG TABLET PO ×2 (09:28→17:10)
[2020-04-05] MEDS: PANTOPRAZOLE 40 MG TABLET PO (09:28)
[2020-04-05] MEDS: buPROPion HCL XL (24 HR) 150 MG TABCR 300 MG PO (09:28)
[2020-04-05] MEDS: ALPRAZolam (*CRX) 0.5 MG TABLET PO ×3 (09:30→17:10)
--- NOTE | 2020-04-05 13:53 | WPDREHABHP ---
H&P: HPI History of Present Illness Date/Time: 04/05/20 13:53 80 years old admitted to the acute rehab floor with left middle cerebral artery ischemia and clinical result of aphasia in addition to history of underlying atrial fibrillation, additionally she does have severe stenosis of the left brachiocephalicvein and has been taking aspirin along with the Lovenox and Eliquis. He continues to be involved in the physical therapy and occupational therapy Chief complaint: L MCA STROKE Narrative: Wagner Garland is a 80 year old male Review of Systems Review of Systems All systems reviewed & are unremarkable except as noted in HPI and below PMFSH Past Medical History Medical History (Updated 03/25/20 @ 15:42 by Yung Shelton MD) Afib Coronary artery disease Coronary artery disease Pacemaker Family History Family History Other Unknown family medical history Social History Social History Smoking status: Never smoker Second hand tobacco smoke exposure: No Alcohol intake: former Substance use: never Substance use type: does not use Spiritual care concerns: No Meds Home Medications and Allergies Home Medications Medication Instructions Recorded Confirmed Type alprazolam 1 mg PO QID 03/24/20 03/24/20 History amiodarone 200 mg PO EVERY OTHER DAY 03/24/20 03/24/20 History apixaban [Eliquis] 5 mg PO BID 03/24/20 03/24/20 History atorvastatin 40 mg PO HS 03/24/20 03/24/20 History bupropion HCl 300 mg PO DAILY 03/24/20 03/24/20 History digoxin 125 mcg PO EVERY OTHER DAY 03/24/20 03/24/20 History levothyroxine 75 mcg PO DAILY 03/24/20 03/24/20 History nitroglycerin 0.4 mg BUCCAL PRN 03/24/20 03/24/20 History pantoprazole 40 mg PO AC 03/24/20 03/24/20 History polyethylene glycol 3350 17 g PO DAILY 03/24/20 03/24/20 History sennosides 17.2 mg PO DAILY 03/24/20 03/24/20 History tamsulosin 0.4 mg PO DAILY 03/24/20 03/24/20 History zolpidem 10 mg PO HS 03/24/20 03/24/20 History Allergies Allergy/AdvReac Type Severity Reaction Status Date / Time No Known Allergies Allergy Verified 03/24/20 15:12 Vital Signs Vital Signs - 24 hr 04/04/20 14:00 04/04/20 22:00 04/05/20 06:00 Temperature 36.2 C L 36.3 C L 36.8 C Pulse Rate 70 71 70 Respiratory Rate 18 21 H 20 Blood Pressure 114/43 L 132/47 L 112/47 L Pulse Oximetry 100 100 98 04/05/20 08:00 Temperature Pulse Rate 70 Respiratory Rate 20 Blood Pressure Pulse Oximetry 98 Exam Narrative Exam Narrative: on examination today he is awake alert cooperative in no obvious acute distress ,his speech not dysphasic not dysarthric, heart regular with no murmur at times irregular, lungs clear with no crepitations, abdomen is soft with no tenderness, neuro examination with right-sided deficit Assessment and Plan Assessment and plan (1) Coronary artery disease: Code(s): I25.10 - Atherosclerotic heart disease of [place] coronary artery without angina pectoris Status: Acute (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: Code(s): I65.22 - Occlusion and stenosis of left carotid artery Status: Acute (3) Coronary artery disease: Code(s): I25.10 - Atherosclerotic heart disease of [place] coronary artery without angina pectoris Status: Acute (4) Pacemaker: Code(s): Z95.0 - Presence of cardiac pacemaker Status: Acute (5) Afib: Code(s): I48.91 - Unspecified atrial fibrillation Status: Acute (6) Right hemiparesis: Code(s): G81.91 - Hemiplegia, unspecified affecting right dominant side Status: Acute (7) Aphasia: Code(s): R47.01 - Aphasia Status: Acute (8) Stroke: Code(s): I63.9 - Cerebral infarction, unspecified Status: Acute Additional Plan stable and involved in the physical therapy and occupational therapy will be continued as such
[2020-04-05 14:00] VITALS: BP 131/50; PULSE 70; RESP 18; TEMP 36.5; O2SAT 100
[2020-04-05 22:00] VITALS: BP 128/48; PULSE 70; RESP 19; TEMP 36.1; O2SAT 100
[2020-04-06 06:00] VITALS: BP 114/49; PULSE 70; RESP 16; TEMP 36.1; O2SAT 96
[2020-04-06] MEDS: ZOLPIDEM TARTRATE (*CRX) 5 MG TABLET 10 MG PO (06:01)
[2020-04-06] MEDS: ATORVASTATIN 40 MG TABLET PO (06:01)
[2020-04-06] MEDS: ALPRAZolam (*CRX) 0.5 MG TABLET PO ×4 (06:01→17:37)
[2020-04-06] MEDS: LEVOTHYROXINE SODIUM 75 MCG TABLET PO (06:02)
[2020-04-06 08:23] VITALS: PULSE 70
[2020-04-06] MEDS: AMIODARONE HCL 200 MG TABLET PO (08:23)
[2020-04-06 08:25] VITALS: PULSE 70
[2020-04-06] MEDS: DIGOXIN TAB 125 MCG TABLET PO (08:25)
[2020-04-06] MEDS: buPROPion HCL XL (24 HR) 150 MG TABCR 300 MG PO (08:25)
[2020-04-06] MEDS: APIXABAN 5 MG TABLET PO ×2 (08:25→17:37)
[2020-04-06] MEDS: TAMSULOSIN HCL 0.4 MG CAPSULE PO (08:26)
[2020-04-06] MEDS: PANTOPRAZOLE 40 MG TABLET PO (08:26)
[2020-04-06 14:00] VITALS: BP 113/55; PULSE 70; RESP 16; TEMP 36.1; O2SAT 100
--- NOTE | 2020-04-06 15:08 | PCDIET ---
Nutrition Follow-Up Complete: Nutrition Diagnosis: Inadequate nutrient intake related to difficulty with motor skills and fluctuating appetite, as evidenced by pt interview and nurse records of intake. Nutrition Goal: Pt will consume at least 80% or more of all snacks and meals to maintain weight and build strength. Goal met. Patient consuming 80-100% of most meals on heart healthy diet with Thrive BID. Patient reports everything is going well and is anticipating discharge later today. Eating lunch at time of visit. Last recorded weight is 63.7 kg. Recommend obtaining new weight if discharge held. Bowel Motility: Last documented BM on 04/04/20. Labs Reviewed: Hgb (10.1), Hct (31.4), BUN (27) Meds Noted: Lipitor, Synthroid, Protonix, Miralax Additional Notes: No skin breakdown documented. Will continue to monitor with same goal. Nutrition Monitoring and Evaluation: Follow up in 7 days.
--- NOTE | 2020-04-12 12:09 | PM.DS ---
DS: Admitting Diagnosis Admitting Diagnosis Admitting Diagnosis: L MCA STROKE 80 years old male admitted to the rehab floor with primary rehab impairment category of his stroke secondary to left middle cerebral artery infarction in addition to the comorbid conditions of 1. Hypertension 2. Atrial fibrillation 3. Coronary artery disease 4. Benign prostatic hypertrophy 5. Status post pacemaker implantation and 6. Colitis. during this hospitalization he was not seen by any other physician except the rehab physicians .it is important to know that he was documented to have severe stenosis of left brachiocephalic vein and he did not receive tPA. he also underwent EGD which documented no gastritis so he was started on the anticoagulation therapy. at the time of discharge he was ambulating up to 150ft with standby assistance using a wheeled walker, was able to transfer in and out of chair with standby assistance, he was eating with need for setup or clean up, oral hygiene was setup or clean up ,toileting was independent, bathing was supervision, upper body dressing was setup, clean up lower body dressing was supervision ,footwear was setup or clean up ,rolling in bed was independent, sitting to lying independent, lying to sit independent, [id number] supervision, chair transfers supervision ,toilet transfers supervision, car transfers,upervision, walking 10ft supervision, 50ft with 2 turns supervision ,150ft supervision ,,10ft on uneven surfaces supervision , 50ft with 2 turns supervision, walking 150 feet supervision, walking 10ft on uneven surfaces supervision, curb are step supervision, only 4 step supervision picking up objects supervision and independent in the wheelchair for 50 or 150ft during the entire hospitalization patient remained afebrile had no falls he was discharged to his home with a home health and his condition definitely improved DS: Summary Time Spent with Patient Time attestation: Total time spent providing and/or coordinating discharge services: Discharge Plan Discharge Attending physician on discharge: Sonu Olivo Discharging Clinician: Sonu Olivo Anticipated Discharge Date/Time: 04/06/20 10:50 Patient Disposition: Home Health Service Diet: heart healthy Discharge Instructions: Per Care Coordination: Home Health services have been arranged through [facility]. [facility] can be contacted at [phone]. Patient Instructions: Antibiotic Form, Apixaban (By mouth), Open Chest Maze Procedure (DC), Ischemic Stroke (GEN), Blood Thinners (GEN) Stand Alone Forms: General Discharge Information Follow-up/Referrals: [facility] Neuro [facility] Psych [Other] (Stroke follow-up. We will notify you of appointment date.) Primary Care Provider [Other] (No records show your primary care provider. Please follow up with your provider after discharge as needed.) Discharge Medications: New sennosides [Senokot] 8.6 mg Tablet 17.2 mg PO DAILY Qty: 30 RF: 0 alprazolam 0.5 mg Tablet 0.5 mg PO QID Qty: 30 RF: 0 tamsulosin 0.4 mg Capsule 0.4 mg PO DAILY Qty: 30 RF: 0 Continued atorvastatin 40 mg tablet 40 mg PO HS Qty: 30 RF: 0 polyethylene glycol 3350 17 gram Powder In Packet 17 g PO DAILY Qty: 30 RF: 0 amiodarone 200 mg tablet 200 mg PO EVERY OTHER DAY Qty: 30 RF: 0 levothyroxine 75 mcg tablet 75 mcg PO DAILY Qty: 30 RF: 0 pantoprazole 40 mg tablet,delayed release (DR/EC) 40 mg PO AC Qty: 30 RF: 0 nitroglycerin 0.4 mg tablet, sublingual 0.4 mg buccal PRN Qty: 30 RF: 0 digoxin 125 mcg (0.125 mg) tablet 125 mcg PO EVERY OTHER DAY Qty: 15 RF: 0 bupropion HCl 300 mg tablet extended release 24 hr 300 mg PO DAILY Qty: 30 RF: 0 Eliquis 5 mg tablet 5 mg PO BID Qty: 60 RF: 0 Discontinued alprazolam 1 mg tablet 1 mg PO QID RF: 0 tamsulosin 0.4 mg capsule 0.4 mg PO DAILY RF: 0 zolpidem 10 mg tablet 10 mg PO HS RF: 0 sennosides 17.2 mg T
== END 2020-04-06 18:15 | disposition home health service (06) | DRG 57 ==
PROVIDERS: Admitting Provider Psychiatry & Neurology Neurology; PCP Internal Medicine; Visit Provider Psychiatry & Neurology Neurology
DX: I69.351 Hemiplegia and hemiparesis following cerebral infarction affecting right dominant side (principal); I69.320 Aphasia following cerebral infarction; I69.392 Facial weakness following cerebral infarction; D64.9 Anemia, unspecified; F41.8 Other specified anxiety disorders; I10 Essential (primary) hypertension; I48.91 Unspecified atrial fibrillation; I25.2 Old myocardial infarction; I65.22 Occlusion and stenosis of left carotid artery; I25.10 Atherosclerotic heart disease of native coronary artery without angina pectoris; N40.0 Benign prostatic hyperplasia without lower urinary tract symptoms; Z95.0 Presence of cardiac pacemaker; Z95.1 Presence of aortocoronary bypass graft; Z23 Encounter for immunization
CPT/HCPCS: 36415; 80048; 80061; 85025; 90471; 90653; 92507; 92523; 97110; 97112; 97116; 97161; 97167; 97530; 97535; A9270; G0008

== ENCOUNTER 2020-05-09 14:13 | Inpatient (IN) | payer MEDICARE, SELFPAY ==
--- NOTE | ~2020-05-09 | XR_ITS ---
XR chest 1V 05/12/2020 13:21 Indication: Pneumonia Procedure: AP view of the chest Comparison: Comparison to multiple prior studies sequentially, with oldest reviewed study dated 10/29. Findings: Status post median sternotomy for CABG. Pacemaker leads are stable. There are infiltrates o f the right mid and lower lung. There is chronic right lower pleural thickening. Impression: 1: Infiltrates of the right mid and lower lung, suspicious for pneumonia. 2: Chronic right pleural thickening. Reviewed, dictated and finalized at location B. NG DEPARTMENT PREPARER Impression: 1: Infiltrates of the right mid and lower lung, suspicious for pneumonia. 2: Chronic right pleural thickening.
--- NOTE | ~2020-05-09 | XR_ITS ---
EXAMINATION: XR barium swallow modified EXAM DATE: 05/12/2020 13:22 INDICATION: Dysphagia, abnormal CXR . Dysphagia. TECHNIQUE: Modified barium esophagram was performed by myself to administered fluoroscopy, in conjun ction with speech pathologist who administered barium in varying consistencies as per speech patholog ist documentation. This was recorded on tape. The DAP for this procedure was 1.9 Gycm2. FINDINGS: Oral stage: Delayed trigger. Pharyngeal phase: Large piriform and vallecular residual. Laryngeal penetration: Small with liquids, ejected. Aspiration: None. IMPRESSION: Oral feedings recommended as per speech pathologist. Please refer to speech pathologist findings and specific feeding recommendations. Reviewed, dictated and finalized at location A. ASONIC SOLDERER
--- NOTE | ~2020-05-09 | XR_ITS ---
XR chest 1V portable 05/13/2020 09:59 Indication: Pneumonia Procedure: AP portable chest Comparison: 05/12/2020 Findings: Status post median sternotomy for CABG. Heart size normal. Pacemaker leads in expected posi tion. Patchy right-sided airspace disease, compatible with pneumonia. There is been progression since prior study. Small right pleural effusion. No pneumothorax. There is residual contrast in the left c olon. Impression: 1: Progression of patchy right-sided airspace disease, compatible with pneumonia. 2: Small right pleural effusion. Reviewed, dictated and finalized at location B. P PAD FINISHER Impression: 1: Progression of patchy right-sided airspace disease, compatible with pneumoni a. 2: Small right pleural effusion.
--- NOTE | ~2020-05-09 | XR_ITS ---
EXAMINATION: XR chest 1V portable DATE: 05/09/2020 16:56 INDICATION: Seizure. TECHNIQUE: A single frontal view of the chest was obtained. COMPARISON: Chest 2 views 10/30/2003 FINDINGS: There are mild airspace opacities in right mid and lower lung zones and left lower lung zon e. There is a small right pleural effusion. No pneumothorax. The heart size is normal. Median sternot jayme wires and mediastinal surgical clips are seen, likely from prior coronary artery bypass grafting. There is a left chest pacer/defibrillator with leads in right atrium, right ventricle, and coronary sinus. IMPRESSION: 1. Mild airspace opacities in right mid and lower lung zones and left lower lung zone, consistent wit h mild pulmonary edema versus pneumonia. 2. Chronic small right pleural effusion. Reviewed, dictated and finalized at location A. ISION JIG GRINDER IMPRESSION: 1. Mild airspace opacities in right mid and lower lung zones and left lower rima g zone, consistent with mild pulmonary edema versus pneumonia. 2. Chronic small right pleural effusion.
--- NOTE | ~2020-05-09 | CT_ITS ---
EXAMINATION: CT brain wo con DATE: 05/09/2020 15:13 INDICATION: Seizure. TECHNIQUE: Computed tomography (CT) of the head was performed without intravenous contrast. The mA wa s adjusted according to patient size. Iterative reconstruction technique was employed. The dose-lengt h product was 605.33 mGy-cm. COMPARISON: Head CT 04/17/2012 FINDINGS: There are scattered areas of low attenuation in the cerebral white matter. There is no intr acranial hemorrhage, acute infarction, or abnormal intracranial mass lesion. The ventricles are estella l in size. The orbits are normal. The paranasal sinuses are clear. The mastoid air cells are normal. IMPRESSION: 1. Worsened extensive nonspecific cerebral white matter disease, which likely represents chronic smal l vessel ischemic disease. Reviewed, dictated and finalized at location A. RAMS ASSISTANT IMPRESSION: 1. Worsened extensive nonspecific cerebral white matter disease, which likely r epresents chronic small vessel ischemic disease.
[2020-05-09 14:23] VITALS: BP 136/64; PULSE 80; RESP 18; TEMP 36.7; O2SAT 97
--- NOTE | 2020-05-09 14:57 | ECG_ITS ---
Measurements Intervals [place] Rate: 70 P: MT: 0 QRS: 262 QRSD: 137 T: 85 QT: 535 QTc: 578 Interpretive Statements ATRIAL SENSE- ELECTRONIC VENTRICULAR PACEMAKER BASELINE ARTIFACT- I, II, III, AVR, AVL, AVF, V3-V6 NO FURTHER INTERPRETATION IS POSSIBLE ATYPICAL ECG Electronically Signed On 05-09-2020 16:31:34 GOVERNMENT CLERK by Antoine Carrasco D.O.
--- NOTE | 2020-05-09 15:07 | ED.SEIZURE ---
HPI - Seizure General Chief Complaint: Seizure Stated Complaint: seizure Time Seen by Provider: 05/09/20 14:23 Source: EMS Mode of arrival: EMS Limitations: clinical condition History of Present Illness HPI Narrative: 80 years old white male came from [facility] with a seizure like activity lasted for 30 seconds. Patient had a recent diagnosis of stroke on March 19, 2020 with right hemiplegia and aphasia. Patient denies biting his tongue or urine incontinence. Patient also denies any similar symptoms. Or history of seizure. Currently patient on alprazolam, Ambien, digoxin and Baltazar GREENE complaint: possible seizure Related Data Allergies Allergy/AdvReac Type Severity Reaction Status Date / Time No Known Allergies Allergy Verified 05/09/20 16:20 Review of Systems Review of Systems: ROS unobtainable: Yes unobtainable due to medical condition (Patient is aphasic) PMFSH Past Medical History Medical History Afib Coronary artery disease Coronary artery disease Pacemaker Family History Family History Other Unknown family medical history Social History Social History Smoking status: Never smoker Second hand tobacco smoke exposure: No Alcohol intake: former Substance use: never Substance use type: does not use Spiritual care concerns: No Exam Narrative: Exam Narrative: General appearance: Well-developed, well-nourished Skin: Normal color Head: Normocephalic, nontraumatic Eyes: Clear conjunctiva ENT: Oropharynx normal, ears normal, nose normal Neck: Supple, nontender Chest and respiratory: Airway patent, no respiratory distress, no accessory muscle use Heart: Regular rate/rhythm Abdomen: Soft, nontender, no organomegaly, quiet bowel sounds Vascular: Normal peripheral pulses, normal capillary refill.Musculoskeletal: Normal range of motion, nontender back Neurologic: Alert , aphasic, right hemiplegia Course Course Emergency Course: Stable Consultations Consultation #1: DR OLIVO Date: 05/09/20 Time: 15:39 Vital Signs Vital signs: Vital Signs Temperature 36.7 C 05/09/20 14:23 Pulse Rate 80 05/09/20 14:23 Respiratory Rate 18 05/09/20 14:23 Blood Pressure 136/64 05/09/20 14:23 Pulse Oximetry 97 05/09/20 14:23 Temperature 36.7 C 05/09/20 14:23 Pulse Rate 78 05/09/20 16:25 Respiratory Rate 20 05/09/20 16:25 Blood Pressure 128/78 05/09/20 16:25 Pulse Oximetry 99 05/09/20 16:25 MDM - Seizure MDM Narrative Medical decision making narrative: Patient presents with seizure-like activity which high likely secondary to the recent stroke he had in March 2020 Keppra 1 g IV ordered. Labs, CT head ordered. Dr. Olivo was consulted. Patient will be admitted to telemetry for further evaluation and management. Differential Diagnosis Differential diagnosis: Likely focal seizure, generalized seizure and new onset seizure Medical Records Attestation: I reviewed the patient's medical records. Lab Data Result diagrams: 05/09/20 15:44 05/09/20 15:44 Labs: Lab Results 05/09/20 05/09/20 05/09/20 Range/Units 15:44 15:44 15:44 WBC 21.5 H (4.5-10.0) K/mm3 RBC 3.66 L (4.6-6.20) M/mm3 Hgb 11.0 L (14.0-18.0) g/dL Hct 33.9 L (42.0-52.0) % MCV 92.6 (80-100) fl MCH 30.1 (26-34) pg MCHC 32.4 (32-36) g/dl RDW 14.3 (11.5-14.5) % Plt Count 324 D (150-375) k/mm3 MPV 9.2 (7.4-10.4) fl Immature Gran % (Auto) 1.7 H (0-0.5) % Neut % (Auto) 87.6 H (45.5-
[2020-05-09] MEDS: levETIRAcetam 1000MG/NACL100ML 1,000 MG/100 ML BAG 400 MG IVPB (15:49)
[2020-05-09 15:53] LABS: Basophils Percent Auto 0.1 % (0.2-1.2); Hematocrit 33.9 % (42.0-52.0); Immature Granulocyte Absolute 0.36 K/mm3 (0.00-0.031); Immature Granulocyte Percent A 1.7 % (0-0.5); Lymphocytes Absolute Auto 0.61 K/mm3 (0.9-3.2); Lymphocytes Percent Auto 2.8 % (18.3-44.2); Mean Corpuscular HGB Conc 32.4 g/dl (32-36); Mean Corpuscular Hemoglobin 30.1 pg (26-34); Mean Corpuscular Volume 92.6 fl (80-100); Mean Platelet Volume 9.2 fl (7.4-10.4); Monocytes Absolute Auto 1.7 K/mm3 (0.1-0.6); Monocytes Percent Auto 7.8 % (2.6-8.5); Neutrophils Absolute Auto 18.8 K/mm3 (1.3-6.7); Neutrophils Percent Auto 87.6 % (45.5-73.1); Platelet Count Result 324 k/mm3 (150-375); Red Blood Count 3.66 M/mm3 (4.6-6.20); Red Cell Distribution Width 14.3 % (11.5-14.5); White Blood Count 21.5 K/mm3 (4.5-10.0)
[2020-05-09 16:06] LABS: Alanine Aminotransferase 50 U/L (4-50); Albumin Level 3.8 g/dL (3.5-5.1); Alkaline Phosphatase 99 U/L (38-126); Anion Gap 15 mmol/L (8-16); Aspartate Amino Transferase 91 U/L (17-59); Blood Urea Nitrogen 48 mg/dL (9-20); Calcium 9.4 mg/dL (8.4-10.2); Carbon Dioxide 27 mmol/L (22-30); Chloride 102 mmol/L (98-107); Estimated CRCL calculation 20 ml/min; Estimated Glomerular Filt Rate 32; Glucose 252 mg/dL (75-110); Potassium 4.7 mmol/L (3.4-5.0); Sodium 144 mmol/L (137-145)
[2020-05-09 16:25] VITALS: BP 128/78; PULSE 78; RESP 20; O2SAT 99
[2020-05-09 16:30] LABS: Digoxin 0.8 ng/mL (0.8-2.0)
[2020-05-09 17:06] LABS: Creatine Kinase 62 U/L (55-170)
[2020-05-09] MEDS: SODIUM CHLORIDE 0.9% IV 500 ML (18:05)
[2020-05-09 18:44] LABS: Add Urine Microscopic? YES; Amorphous Sediment Urine Few; Appearance Urine Cloudy (Clear); Bacteria Urine Trace /hpf; Bilirubin Urine Negative (Negative); Blood Urine 3+ (Negative); Color Urine Amber (Yellow); Glucose Urine UA Negative (Negative); Ketones Urine Negative (Negative); Leukocyte Esterase Ur Negative LEU/UL (Negative); Mucus Urine Few /lpf; Nitrate Urine Negative (Negative); Protein Urine 2+ mg/dL (Negative); RBC Urine >75 /hpf (0-2); Specific Grav Ur 1.017 (1.001-1.035); Squamous Epithelial Cell Urine Rare /hpf (Few); Urobilinogen Urine Negative mg/dL (<2.0)
--- NOTE | 2020-05-09 19:00 | PM.IMHP ---
H&P: HPI History of Present Illness Date/Time: 05/09/20 19:00 Chief complaint: Seizure-like activity. Narrative: Wagner Garland is an unfortunate 80-year-old who suffered a stroke in March 2020 with right hemiplegia and expressive aphasia, atrial fibrillation, and coronary artery disease who presented to the emergency department earlier today via EMS from [place] for evaluation of seizure-like activity. Given his expressive aphasia he is not able to provide me with a history and as such majority of the following is obtained via a review of his electronic medical records. Not long prior to arrival he reportedly exhibited seizure-like activity for approximately 30 seconds before resolving, however there is no good documentation as to what occurred. He was loaded with Keppra in the emergency department with the intention of sending him back to the half-way with neurology follow-up however labs showed a white blood cell count of 21.5 which prompted further investigation. Chest x-ray showed findings consistent with either pulmonary edema or pneumonia and is being admitted in this setting. He is able to nod and shake his head when asked questions however I am not certain he is answering appropriately though he does indicate that he has had some dysphagia since his stroke. There is no documentation of fever or if he has had exposure to those positive for COVID-19. He denies pain and reported having no concerns at the time my evaluation. Review of Systems Review of Systems: Narrative: A review of systems was attempted but is limited given his expressive and probably receptive aphasia. He indicates having a cough recently. He did shake his head no when asked if he had a headache, chest pain, shortness of breath, nausea, vomiting, diarrhea, and dysuria. No known fever. 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 He had dysphagia at the outset however is now eating a regular diet after therapy. 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 Echocardiogram was unremarkable. Chronic anemia Coronary artery disease GI bleed (~03/04/20) Hospitalized at [facility]. EGD was unremarkable. Colonoscopy showed possible ischemic colitis of the sigmoid colon. Hypertension Hypothyroidism Skin cancer Surgical History Surgical History (Updated 05/10/20 @ 00:01 by Pamela Odell PA-C) History of cardiac pacemaker in situ History of coronary artery bypass graft History of maze procedure Family History Family History Other Unknown family medical history Social History Social History (Updated 05/09/20 @ 23:58 by aPmela Odell PA-C) Social History: The patient is currently at [facility] but prior to his stroke he was living in [place] with his and daughter. No alcohol, tobacco, or illicit substance use. His Evelyne is listed as his emergency contact. He is a full code. Smoking status: Never smoker Second hand tobacco smoke exposure: No Alcohol intake: former Substance use: never Substance use type: does not use Living arrangements: half-way Occupation/Education: retired Gender identity (if verbalized by the patient): Male Sexual Orientation (if Verbalized by the Patient): Straight or Heterosexual Spiritual care concerns: No Meds Home Medications and Allergies Home Medications Medication Instructions Recorded Confirmed Type amiodarone 200 mg PO EVERY OTHER DAY #30 04/06/20 05/09/20 Rx tablet digoxin 125 mcg PO EVERY OTHER DAY #15 04/06/20 05/09/20 Rx tabl
[2020-05-09 20:00] VITALS: BP 129/51; PULSE 71; RESP 18; TEMP 36.9; O2SAT 97; BMI 19.5
[2020-05-09] MEDS: SODIUM CHLORIDE 0.9% IV 1,000 ML 75 ML IV CONT (20:39)
[2020-05-09 21:00] VITALS: O2SAT 96
--- NOTE | 2020-05-09 21:06 | ADMGEN ---
At 1999, This patient, Wagner Garland, was admitted to [facility] Surg Room 316-01. Patient/family oriented to hospital policies and general routines including ID bracelet, bed and alarms, visiting hours, pain management, procedures, bathroom and other care routines, personal items, smoking policy, room service/diet, and visiting hours. Information on how to activate the Rapid Response Team has been discussed. Patient/Family are encouraged to report perceived risks to care and to ask questions if they do not understand what they are told or what they should do.
[2020-05-10] VITALS (7 sets, daily range): BP systolic 105–140; BP diastolic 41–83; PULSE 69–83; RESP 18; TEMP 36.4–36.8; O2SAT 94–95
[2020-05-10] MEDS: LEVOTHYROXINE SODIUM 50 MCG TABLET PO (05:47)
[2020-05-10 06:46] LABS: Basophils Percent Auto 0.2 % (0.2-1.2); Eosinophils Percent Auto 0.2 % (0-4.4); Hematocrit 32.6 % (42.0-52.0); Hemoglobin 10.3 g/dL (14.0-18.0); Immature Granulocyte Absolute 0.17 K/mm3 (0.00-0.031); Lymphocytes Absolute Auto 0.84 K/mm3 (0.9-3.2); Lymphocytes Percent Auto 4.8 % (18.3-44.2); Mean Corpuscular HGB Conc 31.6 g/dl (32-36); Mean Corpuscular Hemoglobin 29.8 pg (26-34); Mean Corpuscular Volume 94.2 fl (80-100); Mean Platelet Volume 9.2 fl (7.4-10.4); Monocytes Absolute Auto 1.3 K/mm3 (0.1-0.6); Monocytes Percent Auto 7.4 % (2.6-8.5); Neutrophils Percent Auto 86.4 % (45.5-73.1); Platelet Count Result 260 k/mm3 (150-375); Red Blood Count 3.46 M/mm3 (4.6-6.20); Red Cell Distribution Width 14.6 % (11.5-14.5); White Blood Count 17.4 K/mm3 (4.5-10.0)
[2020-05-10] MEDS: SODIUM CHLORIDE 0.9% IV 1,000 ML 75 ML IV CONT ×2 (07:03→17:49)
[2020-05-10 07:08] LABS: Anion Gap 10 mmol/L (8-16); Blood Urea Nitrogen 49 mg/dL (9-20); Calcium 8.8 mg/dL (8.4-10.2); Carbon Dioxide 29 mmol/L (22-30); Chloride 106 mmol/L (98-107); Estimated CRCL calculation 24 ml/min; Estimated Glomerular Filt Rate 36; Glucose 108 mg/dL (75-110); Magnesium 2.1 mg/dL (1.6-2.3); Potassium 3.9 mmol/L (3.4-5.0); Sodium 145 mmol/L (137-145)
[2020-05-10 07:12] LABS: NT Pro B Type Natriuretic Pept 2770 PG/ML (5-100)
[2020-05-10] MEDS: TAMSULOSIN HCL 0.4 MG CAPSULE PO (09:18)
[2020-05-10] MEDS: APIXABAN 2.5 MG TABLET PO ×2 (09:18→17:49)
[2020-05-10] MEDS: PANTOPRAZOLE 40 MG TABLET PO (09:18)
[2020-05-10] MEDS: guaiFENesin 200 MG/10 ML UDC PO ×3 (09:18→17:49)
[2020-05-10] MEDS: ISOSORBIDE MONONITRATE 30 MG TAB.ER.24H PO (09:18)
[2020-05-10 10:49] LABS: Hemoglobin A1C 5.3 % (<5.7)
--- NOTE | 2020-05-10 12:58 | PM.IMPN ---
Progress Note: A&P Assessment and Plan (1) New onset seizure: Code(s): R56.9 - Unspecified convulsions Status: Acute Assessment and Plan: 05/10/20 12:58 Patient 80-year-old male with 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, with history of atrial fibrillation and coronary artery disease a [facility] department with a complaint possible seizure like activity, unfortunately patient is aphasic was not able to provider any ROS or hx, patient does have risk of developing seizure due to recent stroke patient was started on Keppra from emergency depart, also there was a concern patient with low-grade fever elevated white count of 21.5 and chest x-ray showing infiltrate as well as edema and concern for COVID-19 patient is under investigation, and patient is being treated for possible aspiration pneumonia Rocephin, doxycycline and vancomycin, unfortunately patient is unable to provide any review of symptoms this morning, he nods his head, will follow-up on COVID will continue present management, will be seen neurologist and further recommendation to follow (2) Acute kidney injury: Code(s): N17.9 - Acute kidney failure, unspecified Status: Acute Assessment and Plan: Patient with acute kidney injury most likely secondary to poor p.o. will gently hydrate the patient and monitor (3) Leukocytosis: Code(s): D72.829 - Elevated white blood cell count, unspecified Status: Acute Assessment and Plan: Most likely secondary to pneumonia will monitor (4) Abnormal chest x-ray: Code(s): R93.89 - Abnormal findings on diagnostic imaging of other specified body structures Status: Acute Assessment and Plan: Showing bilateral infiltrate possibly aspiration pneumonia (5) Dehydration: Code(s): E86.0 - Dehydration Status: Acute Assessment and Plan: Gently hydrate the patient (6) Atrial fibrillation: Code(s): I48.91 - Unspecified atrial fibrillation Status: Inactive Assessment and Plan: Rate is controlled patient is anticoagulated with Eliquis will continue to monitor (7) Hypothyroidism: Code(s): E03.9 - Hypothyroidism, unspecified Status: Inactive Assessment and Plan: Will continue levothyroxine (8) Benign prostatic hyperplasia: Code(s): N40.0 - Benign prostatic hyperplasia without lower urinary tract symptoms Status: Inactive Assessment and Plan: Will continue home regimen (9) Chronic anemia: Code(s): D64.9 - Anemia, unspecified Status: Acute Assessment and Plan: Clinically stable Subjective Date/time seen: 05/10/20 12:58 Patient 80-year-old male with 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, with history of atrial fibrillation and coronary artery disease a [facility] was [facility] to emergency department with a complaint possible seizure like activity, unfortunately patient is aphasic was not able to provider any ROS or hx, patient does have risk of developing seizure due to recent stroke patient was started on Keppra from emergency depart, also there was a concern patient with low-grade fever elevated white count of 21.5 and chest x-ray showing infiltrate as well as edema and concern for COVID-19 patient is under investigation, and patient is being treated for possible aspiration pneumonia Rocephin, doxycycline and vancomycin, unfortunately patient is unable to provide any review of symptoms this morning, he nods his head, will follow-up on COVID will continue present management, will be seen neurologist and further recommendation to follow Review of Systems Review of Systems: ROS unobtainable: Yes unobtainable due to medical condition Objective Data Vital Signs Vital Signs: Vital Signs - 24 hr 05/09/20 14:23 05/09/20 16:25 05/09/20 20:00 Temperature 98.0 F 98.4 F Pulse Rate 80 78 71 Respiratory Rate 1
[2020-05-10] MEDS: ATORVASTATIN 10 MG TABLET PO (20:30)
[2020-05-11] VITALS (9 sets, daily range): BP systolic 128–140; BP diastolic 46–70; PULSE 67–71; RESP 16–20; TEMP 36.4–36.9; O2SAT 93–100
[2020-05-11] MEDS: LEVOTHYROXINE SODIUM 50 MCG TABLET PO (05:35)
[2020-05-11] MEDS: SODIUM CHLORIDE 0.9% IV 1,000 ML 75 ML IV CONT ×2 (05:42→20:06)
[2020-05-11] MEDS: AMIODARONE HCL 200 MG TABLET PO (08:36)
[2020-05-11] MEDS: ISOSORBIDE MONONITRATE 30 MG TAB.ER.24H PO (08:36)
[2020-05-11] MEDS: guaiFENesin 200 MG/10 ML UDC PO ×3 (08:36→16:16)
[2020-05-11] MEDS: PANTOPRAZOLE 40 MG TABLET PO (08:36)
[2020-05-11] MEDS: TAMSULOSIN HCL 0.4 MG CAPSULE PO (08:36)
[2020-05-11] MEDS: APIXABAN 2.5 MG TABLET PO ×2 (08:36→16:16)
[2020-05-11] MEDS: DIGOXIN TAB 125 MCG TABLET PO (08:37)
--- NOTE | 2020-05-11 10:37 | WPDNEURCNPN ---
Assessment and Plan Assessment and plan (1) New onset seizure: Code(s): R56.9 - Unspecified convulsions Status: Acute (2) Afib: Code(s): I48.91 - Unspecified atrial fibrillation Status: Acute (3) Aphasia: Code(s): R47.01 - Aphasia Status: Acute (4) Right hemiparesis: Code(s): G81.91 - Hemiplegia, unspecified affecting right dominant side Status: Acute (5) Stroke: Code(s): I63.9 - Cerebral infarction, unspecified Status: Acute Additional Plan new onset seizure most likely because of the left hemispheric stroke will benefit from the ongoing treatment with the anticonvulsants in addition to his other general care Consult date: 05/11/20 Time Seen: 10:30 HPI: Wagner Garland is a 80 year old male has been admitted to [facility] through the emergency room for the possible seizure. Patient has had a stroke in March of 2020 with resultant right hemiplegia, expressive aphasia, coronary artery disease with atrial fibrillation underlying the problem. Transfer to the ER from [facility] via EMS for the seizure-like activity for 30seconds for resolving. He was loaded with Keppra in the emergency room with intention of sending back to the [place] [facility] but he was found to have leukocytosis which prompted further investigation. X-ray chest documented pulmonary edema versus pneumonia there is no history of exposure to the COVID-19 he does have a history of as mentioned before atrial fibrillation cerebrovascular accident coronary artery disease hypertension and hypothyroidism In addition to cardiac pacemaker in situ. Evaluation up until known documented leukocytosis with most recent 17.4 hemoglobin 10.3 platelet count of 260 BUN of 49 with creatinine 1.80 GFR only 36 estimated and BNP of [address] of the head with extensive nonspecific white matter disease but no involvement of the territorial arteries. negative x-ray chest except small right pleural effusion with findings suggestive of mild pulmonary edema versus pneumonia Review of Systems Review of Systems: All systems reviewed & are unremarkable except as noted in HPI and below PMFSH Past Medical History Medical History Atrial fibrillation Benign prostatic hyperplasia Cerebrovascular accident (~03/19/20) 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 He had dysphagia at the outset however is now eating a regular diet after therapy. 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 Echocardiogram was unremarkable. Chronic anemia Coronary artery disease GI bleed (~03/04/20) Hospitalized at [facility]. EGD was unremarkable. Colonoscopy showed possible ischemic colitis of the sigmoid colon. Hypertension Hypothyroidism Skin cancer Surgical History Surgical History History of cardiac pacemaker in situ History of coronary artery bypass graft History of maze procedure Family History Family History Other Unknown family medical history Social History Social History Social History: The patient is currently at [facility] but prior to his stroke he was living in [place] with his and daughter. No alcohol, tobacco, or illicit substance use. His Evelyne is listed as his emergency contact. He is a full code. Smoking status: Never smoker Second hand tobacco smoke exposure: No Alcohol intake: former Substance use: never Substance use type: does not use Living arrangements: [facility] Occupation/Education: retired Gender identity (if verbalized by the patient): Male Sexual Orientation (if Verbalized b
[2020-05-11 11:58] LABS: SARS-CoV-2 RNA PCR Negative
--- NOTE | 2020-05-11 13:56 | PM.IMPN ---
Progress Note: A&P Assessment and Plan (1) New onset seizure: Code(s): R56.9 - Unspecified convulsions Status: Acute Assessment and Plan: 05/11/20 13:56 Patient 80-year-old male with 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, with history of atrial fibrillation and coronary artery disease a [facility] was sent to emergency department with a complaint possible seizure like activity, unfortunately patient is aphasic was not able to provider any ROS or hx, patient does have risk of developing seizure due to recent stroke patient was started on Keppra from emergency depart, also there was a concern patient with low-grade fever elevated white count of 21.5 and chest x-ray showing infiltrate as well as edema and concern for COVID-19 patient is under investigation, and patient is being treated for possible aspiration pneumonia Rocephin, doxycycline and vancomycin, unfortunately patient is unable to provide any review of symptoms this morning, he nods his head, will follow-up on COVID will continue present management, will be seen neurologist and further recommendation to follow, Patient covid test is negative, patient white counts are trending down will repeat in the morning and repeat CXR in the morning, patient was seen by Dr. Olivo and switch patient to oral keppara, will continue to monitor and recheck CXR in am, if patient remains clinically stable and no seizures, will discharge back to [facility]. will have PT and OT to evaluate patient. (2) Acute kidney injury: Code(s): N17.9 - Acute kidney failure, unspecified Status: Acute Assessment and Plan: Patient with acute kidney injury most likely secondary to poor p.o. will gently hydrate the patient and monitor (3) Leukocytosis: Code(s): D72.829 - Elevated white blood cell count, unspecified Status: Acute Assessment and Plan: Most likely secondary to pneumonia will monitor (4) Abnormal chest x-ray: Code(s): R93.89 - Abnormal findings on diagnostic imaging of other specified body structures Status: Acute Assessment and Plan: Showing bilateral infiltrate possibly aspiration pneumonia (5) Dehydration: Code(s): E86.0 - Dehydration Status: Acute Assessment and Plan: Gently hydrate the patient (6) Atrial fibrillation: Code(s): I48.91 - Unspecified atrial fibrillation Status: Inactive Assessment and Plan: Rate is controlled patient is anticoagulated with Eliquis will continue to monitor (7) Hypothyroidism: Code(s): E03.9 - Hypothyroidism, unspecified Status: Inactive Assessment and Plan: Will continue levothyroxine (8) Benign prostatic hyperplasia: Code(s): N40.0 - Benign prostatic hyperplasia without lower urinary tract symptoms Status: Inactive Assessment and Plan: Will continue home regimen (9) Chronic anemia: Code(s): D64.9 - Anemia, unspecified Status: Acute Assessment and Plan: Clinically stable Subjective Date/time seen: 05/11/20 13:56 Patient 80-year-old male with 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, with history of atrial fibrillation and coronary artery disease a [facility] was sent to emergency department with a complaint possible seizure like activity, unfortunately patient is aphasic was not able to provider any ROS or hx, patient does have risk of developing seizure due to recent stroke patient was started on Keppra from emergency depart, also there was a concern patient with low-grade fever elevated white count of 21.5 and chest x-ray showing infiltrate as well as edema and concern for COVID-19 patient is under investigation, and patient is being treated for possible aspiration pneumonia Rocephin, doxycycline and vancomycin, unfortunately patient is unable to provide any review of symptoms this morning, he nods his head, will follow-up on COVID will continue pr
[2020-05-11] MEDS: ATORVASTATIN 10 MG TABLET PO (20:02)
[2020-05-11] MEDS: levETIRAcetam ORAL SOL 500 MG/5 ML UDC PO (20:02)
--- NOTE | 2020-05-11 23:16 | PC.NURSE ---
05/11/20 [id number] spoke with patients on phone, plan of care reviewed, questions answered.[email or web address]
[2020-05-12] MEDS: LEVOTHYROXINE SODIUM 50 MCG TABLET PO (05:48)
[2020-05-12 06:00] VITALS: BP 124/74; PULSE 70; RESP 20; TEMP 36.8; O2SAT 98
[2020-05-12] MEDS: levETIRAcetam ORAL SOL 500 MG/5 ML UDC PO ×2 (07:43→20:38)
[2020-05-12] MEDS: ISOSORBIDE MONONITRATE 30 MG TAB.ER.24H PO (07:43)
[2020-05-12] MEDS: TAMSULOSIN HCL 0.4 MG CAPSULE PO (07:43)
[2020-05-12] MEDS: PANTOPRAZOLE 40 MG TABLET PO (07:43)
[2020-05-12] MEDS: guaiFENesin 200 MG/10 ML UDC PO ×2 (07:43→16:50)
[2020-05-12] MEDS: APIXABAN 2.5 MG TABLET PO ×2 (07:43→16:50)
[2020-05-12 08:25] LABS: Hematocrit 27.6 % (42.0-52.0); Hemoglobin 8.7 g/dL (14.0-18.0); Mean Corpuscular HGB Conc 31.5 g/dl (32-36); Mean Corpuscular Hemoglobin 29.9 pg (26-34); Mean Corpuscular Volume 94.8 fl (80-100); Mean Platelet Volume 9.4 fl (7.4-10.4); Platelet Count Result 205 k/mm3 (150-375); Red Blood Count 2.91 M/mm3 (4.6-6.20); Red Cell Distribution Width 14.6 % (11.5-14.5); White Blood Count 10.9 K/mm3 (4.5-10.0)
--- NOTE | 2020-05-12 08:36 | PCSTNOTE ---
This patient has been on hold for the Modified Barium Swallow study due to COVID precautions. The MBS will be performed when cleared by medical staff. Until then, he should remain on current diet.
[2020-05-12 08:37] LABS: Anion Gap 6 mmol/L (8-16); Blood Urea Nitrogen 30 mg/dL (9-20); Calcium 8.4 mg/dL (8.4-10.2); Carbon Dioxide 25 mmol/L (22-30); Chloride 112 mmol/L (98-107); Estimated CRCL calculation 46 ml/min; Estimated Glomerular Filt Rate > 60; Glucose 117 mg/dL (75-110); Potassium 3.6 mmol/L (3.4-5.0); Sodium 143 mmol/L (137-145)
[2020-05-12] MEDS: SODIUM CHLORIDE 0.9% IV 1,000 ML 75 ML IV CONT (13:53)
[2020-05-12 14:00] VITALS: BP 105/83; PULSE 97; RESP 20; TEMP 36.6; O2SAT 72
--- NOTE | 2020-05-12 14:07 | PM.IMPN ---
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, with history of atrial fibrillation and coronary artery disease a [facility] was sent to emergency department with a complaint possible seizure like activity, unfortunately patient is aphasic was not able to provider any ROS or hx, patient does have risk of developing seizure due to recent stroke patient was started on Keppra from emergency depart, also there was a concern patient with low-grade fever elevated white count of 21.5 and chest x-ray showed infiltrate as well as edema and concern for COVID-19 which is negative, and patient is being treated for possible aspiration pneumonia Rocephin, doxycycline and vancomycin, a repeat chest x-ray shows persistent infiltrates however white counts are trending down and patient does not have a fever, unfortunately patient is unable to provide any review of symptoms this morning, he nods his head, in agreement is feeling better, he had a modified swallow study and and speech therapies is recommended minced and moist a diet with nectar thick liquid, recommending to continue speech therapy, will continue PT OT and ST and further recommendation to follow, continue present management with antibiotic repeat checks x-ray and 2 days and further recommendation to follow (2) Acute kidney injury: Code(s): N17.9 - Acute kidney failure, unspecified Status: Acute Assessment and Plan: Patient with acute kidney injury most likely secondary to poor p.o. will gently hydrate the patient and monitor (3) Leukocytosis: Code(s): D72.829 - Elevated white blood cell count, unspecified Status: Acute Assessment and Plan: Most likely secondary to pneumonia will monitor (4) Abnormal chest x-ray: Code(s): R93.89 - Abnormal findings on diagnostic imaging of other specified body structures Status: Acute Assessment and Plan: Showing bilateral infiltrate possibly aspiration pneumonia (5) Dehydration: Code(s): E86.0 - Dehydration Status: Acute Assessment and Plan: Gently hydrate the patient (6) Atrial fibrillation: Code(s): I48.91 - Unspecified atrial fibrillation Status: Inactive Assessment and Plan: Rate is controlled patient is anticoagulated with Eliquis will continue to monitor (7) Hypothyroidism: Code(s): E03.9 - Hypothyroidism, unspecified Status: Inactive Assessment and Plan: Will continue levothyroxine (8) Benign prostatic hyperplasia: Code(s): N40.0 - Benign prostatic hyperplasia without lower urinary tract symptoms Status: Inactive Assessment and Plan: Will continue home regimen (9) Chronic anemia: Code(s): D64.9 - Anemia, unspecified Status: Acute Assessment and Plan: Clinically stable Subjective Date/time seen: 05/12/20 14:07 Patient 80-year-old male with 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, with history of atrial fibrillation and coronary artery disease a [facility] was sent to emergency department with a complaint possible seizure like activity, unfortunately patient is aphasic was not able to provider any ROS or hx, patient does have risk of developing seizure due to recent stroke patient was started on Keppra from emergency depart, also there was a concern patient with low-grade fever elevated white count of 21.5 and chest x-ray showed infiltrate as well as edema and concern for COVID-19 which is negative, and patient is being treated for possible aspiration pneumonia Rocephin, doxycycline and vancomycin, a repeat chest x-ray shows persistent infiltrates however white counts are trending down and patient does not have a fever, unfortunately patient is unable t
[2020-05-12] MEDS: ATORVASTATIN 10 MG TABLET PO (20:39)
[2020-05-12 22:00] VITALS: BP 141/46; PULSE 74; RESP 20; TEMP 36.3; O2SAT 100
[2020-05-13] MEDS: cefTRIAXone 1 GM VIAL IM (01:54)
[2020-05-13 06:00] VITALS: BP 139/51; PULSE 70; RESP 20; TEMP 36.7; O2SAT 99
[2020-05-13] MEDS: LEVOTHYROXINE SODIUM 50 MCG TABLET PO (06:50)
[2020-05-13 08:11] VITALS: PULSE 70
[2020-05-13] MEDS: DIGOXIN TAB 125 MCG TABLET PO (08:11)
[2020-05-13] MEDS: AMIODARONE HCL 200 MG TABLET PO (08:11)
[2020-05-13] MEDS: TAMSULOSIN HCL 0.4 MG CAPSULE PO (08:11)
[2020-05-13] MEDS: levETIRAcetam ORAL SOL 500 MG/5 ML UDC PO (08:11)
[2020-05-13] MEDS: APIXABAN 2.5 MG TABLET PO ×2 (08:11→17:48)
[2020-05-13] MEDS: DOXYCYCLINE HYCLATE 100 MG TABLET PO (08:11)
[2020-05-13] MEDS: ISOSORBIDE MONONITRATE 30 MG TAB.ER.24H PO (08:12)
[2020-05-13] MEDS: PANTOPRAZOLE 40 MG TABLET PO (08:12)
[2020-05-13] MEDS: guaiFENesin 200 MG/10 ML UDC PO (08:12)
--- NOTE | 2020-05-13 12:29 | PCPTNOTE ---
Attempted to see patient for Physical Therapy this afternoon, however patient refused. Patient was dressed in his clothes and motioned towards the window with his arms and was trying to tell the therapist that he leaving. Therapist asked patient if he would rather not do therapy this afternoon since he was leaving. Patient shook his head yes. Therapist notified RN of patient refusing to do Physical Therapy this afternoon.
[2020-05-13 14:00] VITALS: BP 128/57; PULSE 73; RESP 16; TEMP 36.9; O2SAT 99
--- NOTE | 2020-05-13 15:54 | PM.DS ---
DS: Admitting Diagnosis Admitting Diagnosis Admitting Diagnosis: Seizure-like activity. 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, with history of atrial fibrillation and coronary artery disease a [facility] was sent to emergency department with a complaint possible seizure like activity, unfortunately patient is aphasic was not able to provider any ROS or hx, patient does have risk of developing seizure due to recent stroke patient was started on Keppra from emergency depart, also there was a concern patient with low-grade fever elevated white count of 21.5 and chest x-ray showed infiltrate as well as edema and concern for COVID-19 which is negative, and patient is being treated for possible aspiration pneumonia Rocephin, doxycycline and vancomycin, a repeat chest x-ray shows persistent infiltrates however white counts are trending down and patient does not have a fever, unfortunately patient is unable to provide any review of symptoms this morning, he nods his head, in agreement is feeling better, he had a modified swallow study and and speech therapies is recommended minced and moist a diet with nectar thick liquid, recommending to continue speech therapy, will continue PT OT and ST and further recommendation to follow, continue present management with antibiotic repeat checks x-ray and 2 days and further recommendation to follow (2) Acute kidney injury: Code(s): N17.9 - Acute kidney failure, unspecified Status: Acute Assessment and Plan: Patient with acute kidney injury most likely secondary to poor p.o. will gently hydrate the patient and monitor (3) Leukocytosis: Code(s): D72.829 - Elevated white blood cell count, unspecified Status: Acute Assessment and Plan: Most likely secondary to pneumonia will monitor (4) Abnormal chest x-ray: Code(s): R93.89 - Abnormal findings on diagnostic imaging of other specified body structures Status: Acute Assessment and Plan: Showing bilateral infiltrate possibly aspiration pneumonia (5) Dehydration: Code(s): E86.0 - Dehydration Status: Acute Assessment and Plan: Gently hydrate the patient (6) Atrial fibrillation: Code(s): I48.91 - Unspecified atrial fibrillation Status: Inactive Assessment and Plan: Rate is controlled patient is anticoagulated with Eliquis will continue to monitor (7) Hypothyroidism: Code(s): E03.9 - Hypothyroidism, unspecified Status: Inactive Assessment and Plan: Will continue levothyroxine (8) Benign prostatic hyperplasia: Code(s): N40.0 - Benign prostatic hyperplasia without lower urinary tract symptoms Status: Inactive Assessment and Plan: Will continue home regimen (9) Chronic anemia: Code(s): D64.9 - Anemia, unspecified Status: Acute Assessment and Plan: Clinically stable DS: Summary Hospital Course Reason for hospitalization: Chief complaint: Seizure-like activity. Narrative: Wagner Garland is an unfortunate 80-year-old who suffered a stroke in March 2020 with right hemiplegia and expressive aphasia, atrial fibrillation, and coronary artery disease who presented to the emergency department earlier today via EMS from [place] for evaluation of seizure-like activity. Given his expressive aphasia he is not able to provide me with a history and as such majority of the following is obtained via a review of his electronic medical records. Not long prior to arrival he reportedly exhibited seizure-like activity for approximately 30 seconds before resolving, however there is no good documentation as to what occurred. He was loaded with Keppra in the emergency department with the intention of
--- NOTE | 2020-05-13 16:42 | PC.NURSE ---
Attempted to call report at 1641, after being on hold for 10 minutes I was told by staff that the they were not aware the patient was returning to them today. The staff member took down our nurse's station number and said that she would call us back when they get him a bed.
== END 2020-05-13 19:05 | DRG 100 ==
LOC: ANHED 19:10 → ANH3MEDSUR 05-10 00:09
PROVIDERS: Physician Assistant; Admitting Provider Internal Medicine; Emergency Provider Emergency Medicine; PCP Internal Medicine; Visit Provider Family Medicine
DX: R56.9 Unspecified convulsions (principal); J69.0 Pneumonitis due to inhalation of food and vomit; N17.9 Acute kidney failure, unspecified; I48.20 Chronic atrial fibrillation, unspecified; I69.351 Hemiplegia and hemiparesis following cerebral infarction affecting right dominant side; Z20.828 Contact with and (suspected) exposure to other viral communicable diseases; N40.0 Benign prostatic hyperplasia without lower urinary tract symptoms; D64.9 Anemia, unspecified; D72.829 Elevated white blood cell count, unspecified; R93.89 Abnormal findings on diagnostic imaging of other specified body structures; E86.0 Dehydration; E03.9 Hypothyroidism, unspecified; R31.9 Hematuria, unspecified; I25.10 Atherosclerotic heart disease of native coronary artery without angina pectoris; R73.9 Hyperglycemia, unspecified; I69.391 Dysphagia following cerebral infarction; R13.10 Dysphagia, unspecified; Z79.01 Long term (current) use of anticoagulants; I69.320 Aphasia following cerebral infarction; Z95.0 Presence of cardiac pacemaker; Z85.828 Personal history of other malignant neoplasm of skin; Z95.1 Presence of aortocoronary bypass graft
CPT/HCPCS: 36415; 70450; 71045; 80048; 80053; 80162; 81001; 82550; 83036; 83735; 83880; 84443; 85025; 85027; 87040; 87086; 87635; 92526; 92611; 93005; 96365; 96367; 97110; 97161; 97166; 97530; 97535; 99285; A9270; C9803; J0696; J1953; J1956; J2543; J3370; J7030; J7040; U0003

== ENCOUNTER 2020-05-28 15:16 | Inpatient (IN) | payer MEDICARE, SELFPAY ==
[2020-05-28] VITALS (26 sets, daily range): BP systolic 111–140; BP diastolic 45–63; PULSE 67–77; RESP 14–37; TEMP 35.9–36.2; O2SAT 90–100; BMI 14.5
--- NOTE | ~2020-05-28 | CT_ITS ---
EXAMINATION: CT brain wo con DATE: 05/28/2020 16:44 INDICATION: Unresponsive episode. TECHNIQUE: Computed tomography (CT) of the head was performed without intravenous contrast. The mA wa s adjusted according to patient size. Iterative reconstruction technique was employed. Exam dose: 60 5.33 mGy-cm total exam DLP. COMPARISON: 05/09/2020 CT brain FINDINGS: No intracranial mass lesion or hemorrhage or recent cerebrovascular accident is evident. Th ere is no midline shift or mass effect. There is bilateral carotid siphon internal carotid artery calcification. There is nonspecific diminished attenuation of the subcortical and periventricular cerebral white mat ter, likely due to chronic small vessel ischemic changes. There is central and cortical cerebral and cerebellar atrophy. No fracture or bone destruction of the cranial vault. Mastoid air cells and included paranasal sinuses are normally developed and aerated. IMPRESSION: Cerebral atherosclerosis and chronic small vessel ischemic changes of the cerebral white matter No acute intracranial finding or significant change since 05/09/2020 Reviewed, dictated and finalized at [facility]. Reviewed, dictated and finalized at [facility]. TRIMMER
--- NOTE | ~2020-05-28 | XR_ITS ---
XR chest 1V DATE: 05/28/2020 16:48 INDICATION: Altered mental state TECHNIQUE: AP chest views on 05/28/2020 at 1642 at 1643 hours COMPARISON: 05/13/2020 portable AP chest FINDINGS: Status post sternotomy. Normal heart size. Left-sided pacemaker device with leads overlying right atrium, right ventricle and coronary artery sinus. Bilateral hyperinflation, suggesting COPD. There is patchy infiltrate in the right mid and particularly right lower lung zone, with mild improve ment since 05/13/2020. The left lung appears clear. Small right pleural effusion. No left pleural effusion. No pulmonary vascular congestion or pneumotho rax. Osteopenia. IMPRESSION: Mild improvement of right mid and lower lung infiltrates since 05/13/2020 Persistent mild right pleural effusion Reviewed, dictated and finalized at location [facility]. ASSEMBLY SUPERVISOR IMPRESSION: Mild improvement of right mid and lower lung infiltrates since 05/13 Persistent mild right pleural effusion
--- NOTE | 2020-05-28 15:19 | ECG_ITS ---
Measurements Intervals [place] Rate: 79 P: CO: 0 QRS: 87 QRSD: 113 T: -79 QT: 330 QTc: 380 Interpretive Statements ELECTRONIC VENTRICULAR PACEMAKER FUSION COMPLEXES BASELINE ARTIFACT- I, II, III, AVR, AVL, AVF, V1-V6 NO FURTHER INTERPRETATION IS POSSIBLE ATYPICAL ECG Electronically Signed On 05-28-2020 15:23:50 FIBERGLASS CONTAINER WINDING OPERATOR by Antoine Carrasco D.O.
--- NOTE | 2020-05-28 15:22 | ED.AMS ---
HPI - Altered Mental Status General Chief Complaint: Altered Mental Status Stated Complaint: syncopal History of Present Illness HPI narrative: 80 yo male brought in from longterm for unresponsive episode. They were preparing to put in an IV when he reportedly went unresponsive. CPR was started. After only a few compressions he awoke and returned to baseline. He is reportedly under treatment for pneumonia at this time. He denies any pain. History severely limited by aphasia Related Data Home Medications Medication Instructions Recorded Confirmed atorvastatin 10 mg PO HS 05/09/20 05/09/20 cholecalciferol (vitamin D3) 1,250 mcg PO WEEKLY 05/09/20 05/09/20 furosemide [Lasix] 20 mg PO DAILY 05/09/20 05/09/20 guaifenesin 200 mg PO TID 05/09/20 05/09/20 isosorbide mononitrate 30 mg PO DAILY 05/09/20 05/09/20 levothyroxine 50 mcg PO DAILY 05/09/20 05/09/20 pantoprazole 40 mg PO DAILY 05/09/20 05/09/20 spironolactone 25 mg PO DAILY 05/09/20 05/09/20 Eliquis 2.5 mg PO BID 05/10/20 05/10/20 Wellbutrin XL 150 mg PO DAILY 05/10/20 05/10/20 Allergies Allergy/AdvReac Type Severity Reaction Status Date / Time No Known Allergies Allergy Verified 05/09/20 16:20 Review of Systems Review of Systems: ROS unobtainable: Yes other (aphasia) [facility] Past Medical History Medical History Atrial fibrillation Benign prostatic hyperplasia Cerebrovascular accident (~03/19/20) 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 He had dysphagia at the outset however is now eating a regular diet after therapy. 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 Echocardiogram was unremarkable. Chronic anemia Coronary artery disease GI bleed (~03/04/20) Hospitalized at [facility]. EGD was unremarkable. Colonoscopy showed possible ischemic colitis of the sigmoid colon. Hypertension Hypothyroidism Skin cancer Surgical History Surgical History History of cardiac pacemaker in situ History of coronary artery bypass graft History of maze procedure Family History Family History Other Unknown family medical history Social History Social History Social History: The patient is currently at [place] but prior to his stroke he was living in [place] with his and daughter. No alcohol, tobacco, or illicit substance use. His Evelyne is listed as his emergency contact. He is a full code. Smoking status: Never smoker Second hand tobacco smoke exposure: No Alcohol intake: former Substance use: never Substance use type: does not use Gender identity (if verbalized by the patient): Male Spiritual care concerns: No Exam Const: General: no acute distress, alert and ill appearing Nutritional Appearance: thin HENMT: Head: normal to inspection Neck: Neck: normal visual inspection Chest: Chest palpation & inspection: no tenderness Resp: Effort & Inspection: normal respiratory effort Auscultation: clear to auscultation bilaterally Cardio: Rate: regular rate Rhythm: regular rhythm GI: GI Palp: Yes Soft to palpation Skin: General skin exam: normal color Neuro: General: moves all extremities, no focal motor deficits and CN's II-XI intact bilaterally Other: No verbal response. Responds appropriate to yes-or-no questions with nod or shake of his head. Extrem: General: normal to inspection and no edema Course Vital Signs Vital signs: Vital Signs Pulse Rate 74 05/28/20 15:19 Respiratory Rate 18 05/28/20 15:19 Blood Pressure 111/51 L 05/28/20 15:19 Pulse Oximetry 92 05/28/20 15:19 Pulse Ra
[2020-05-28] MEDS: SODIUM CHLORIDE 0.9% IV 1,000 ML 999 ML IV CONT (15:49)
--- NOTE | 2020-05-28 15:52 | PC.NURSE ---
Pt is difficult stick. Multiple attempts made to collect labs without success. RN at bedside with ultrasound at this time to attempt lab collection.
[2020-05-28 16:15] LABS: Basophils Percent Auto 0.1 % (0.2-1.2); Hematocrit 45.8 % (42.0-52.0); Hemoglobin 14.4 g/dL (14.0-18.0); Immature Granulocyte Absolute 0.11 K/mm3 (0.00-0.031); Immature Granulocyte Percent A 0.8 % (0-0.5); Lymphocytes Absolute Auto 0.55 K/mm3 (0.9-3.2); Lymphocytes Percent Auto 4.1 % (18.3-44.2); Mean Corpuscular HGB Conc 31.4 g/dl (32-36); Mean Corpuscular Hemoglobin 29.8 pg (26-34); Mean Corpuscular Volume 94.6 fl (80-100); Monocytes Absolute Auto 1.3 K/mm3 (0.1-0.6); Monocytes Percent Auto 9.7 % (2.6-8.5); Neutrophils Absolute Auto 11.5 K/mm3 (1.3-6.7); Neutrophils Percent Auto 85.3 % (45.5-73.1); Platelet Count Result 135 k/mm3 (150-375); Red Blood Count 4.84 M/mm3 (4.6-6.20); Red Cell Distribution Width 16.2 % (11.5-14.5); White Blood Count 13.5 K/mm3 (4.5-10.0)
[2020-05-28 16:19] LABS: Prothrombin Time 23.4 Seconds (11.1-14.7)
[2020-05-28 16:20] LABS: Partial Thromboplastin Time 44.8 SECONDS (22.3-36.8)
[2020-05-28 16:26] LABS: Alanine Aminotransferase 19 U/L (4-50); Albumin Level 3.9 g/dL (3.5-5.1); Alkaline Phosphatase 132 U/L (38-126); Anion Gap 13 mmol/L (8-16); Aspartate Amino Transferase 29 U/L (17-59); Blood Urea Nitrogen 63 mg/dL (9-20); Calcium 10.4 mg/dL (8.4-10.2); Carbon Dioxide 32 mmol/L (22-30); Chloride 100 mmol/L (98-107); Estimated Glomerular Filt Rate 30; Glucose 273 mg/dL (75-110); Potassium 4.5 mmol/L (3.4-5.0); Sodium 145 mmol/L (137-145)
[2020-05-28 16:29] LABS: Ovalocytes 1+ (NORMAL)
--- NOTE | 2020-05-28 16:29 | PC.NURSE ---
Attempted straight cath for urine sample without success. Bladder scanned pt and found 20 ml in bladder. Will try again after fluid administration.
[2020-05-28 16:33] LABS: Lactic Acid Reflex 5.2 mmol/L (0.7-2.1)
[2020-05-28 17:05] LABS: Troponin I 0.199 ng/mL (0.000-0.034)
--- NOTE | 2020-05-28 18:44 | ADMGEN ---
This patient, Wagner Garland, was admitted to IMU Room 232-01 on 05-28-2020 at 1845. Patient/family oriented to hospital policies and general routines including ID bracelet, bed and alarms, visiting hours, pain management, procedures, bathroom and other care routines, personal items, smoking policy, room service/diet, and visiting hours. Information on how to activate the Rapid Response Team has been discussed. Patient/Family are encouraged to report perceived risks to care and to ask questions if they do not understand what they are told or what they should do.
[2020-05-28] MEDS: LACTATED RINGERS 1,000 ML 125 ML IV CONT (18:58)
[2020-05-28 19:06] LABS: Reflex Lactic Acid Yes or No Add Lactic
[2020-05-28 19:36] LABS: Lactic Acid 2.5 mmol/L (0.7-2.1)
--- NOTE | 2020-05-28 19:45 | PM.IMHP ---
H&P: HPI History of Present Illness Date/Time: 05/28/20 19:45 Chief Complaint: Unresponsive episode Narrative: This is an 80 year old male well known to our Hospitalist service as he was just admitted and discharged for two weeks ago after apparently having a seizure and is known to have suffered a stroke in March 2020 with right hemiplegia and expressive aphasia, atrial fibrillation on chronic Eliquis therapy, and coronary artery disease who presented to the emergency department earlier today via EMS from [facility] for evaluation of an unresponsive episode . Apparently nursing staff was about to put in an IV when he reportedly went unresponsive. CPR was started. After only a few compressions he awoke and returned to baseline. He is reportedly under treatment for pneumonia. The patient is aphasic and answers questions by nodding his head. He does nod his head yes when I ask him if his chest hurts. He denies any coughing, fevers, or abdominal pain but does nod yes to shortness of breath. Routine labs were obtained in the ER today which showed a mild leukocytosis of 13,500, an elevated creatinine of 2.10 and an elevated lactic acid level of 5.2. Repeat lactic acid came back at 2.5. Troponin came back positive at 0.199. The patient nods yes when I ask him if he has not been eating or drinking much lately. During his last hospitalization speech therapist recommended speech therapies minced and moist a diet with nectar thick liquid. He also tested negative for COVID-19 during his last hospitalization and was treated with Rocephin, doxycycline and vancomycin for possible aspiration pneumonia at that time. In the ER today the patient was treated with 1 liter of NS IV bolus and then started on LR at 125 ml/hr. He was also treated with azithromycin and ceftriaxone. Urinalysis is currently pending. 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 He had dysphagia at the outset however is now eating a regular diet after therapy. 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 Echocardiogram was unremarkable. Chronic anemia Coronary artery disease GI bleed (~03/04/20) Hospitalized at [facility]. EGD was unremarkable. Colonoscopy showed possible ischemic colitis of the sigmoid colon. Hypertension Hypothyroidism Skin cancer Surgical History Surgical History History of cardiac pacemaker in situ History of coronary artery bypass graft History of maze procedure Family History Family History Other Unknown family medical history Social History Social History Social History: The patient is currently at [place] but prior to his stroke he was living in [place] with his and daughter. No alcohol, tobacco, or illicit substance use. His Evelyne is listed as his emergency contact. He is a full code. Smoking status: Never smoker Second hand tobacco smoke exposure: No Alcohol intake: former Substance use: never Substance use type: does not use Gender identity (if verbalized by the patient): Male Spiritual care concerns: No Meds Home Medications and Allergies Home Medications Medication Instructions Recorded Confirmed Type amiodarone 200 mg PO EVERY OTHER DAY #30 04/06/20 05/28/20 Rx tablet digoxin 125 mcg PO EVERY OTHER DAY #15 04/06/20 05/28/20 Rx tablet nitroglycerin 0.
[2020-05-28 20:28] LABS: Glucose Point of Care 186 (65-105)
[2020-05-28 22:00] LABS: Lactic Acid Reflex 2.1 mmol/L (0.7-2.1)
[2020-05-28 22:15] LABS: Troponin I 0.173 ng/mL (0.000-0.034)
[2020-05-29] VITALS (10 sets, daily range): BP systolic 100–141; BP diastolic 50–74; PULSE 67–71; RESP 12–18; TEMP 36.1–36.9; O2SAT 96–100; BMI 14.5
[2020-05-29] MEDS: LACTATED RINGERS 1,000 ML 125 ML IV CONT ×2 (05:28→12:05)
[2020-05-29 05:30] LABS: Basophils Percent Auto 0.2 % (0.2-1.2); Eosinophils Percent Auto 0.3 % (0-4.4); Hematocrit 32.3 % (42.0-52.0); Immature Granulocyte Absolute 0.09 K/mm3 (0.00-0.031); Immature Granulocyte Percent A 0.7 % (0-0.5); Lymphocytes Absolute Auto 0.83 K/mm3 (0.9-3.2); Lymphocytes Percent Auto 6.5 % (18.3-44.2); Mean Corpuscular Hemoglobin 29.2 pg (26-34); Mean Corpuscular Volume 94.4 fl (80-100); Mean Platelet Volume 10.3 fl (7.4-10.4); Monocytes Absolute Auto 1.2 K/mm3 (0.1-0.6); Monocytes Percent Auto 9.8 % (2.6-8.5); Neutrophils Absolute Auto 10.5 K/mm3 (1.3-6.7); Neutrophils Percent Auto 82.5 % (45.5-73.1); Platelet Count Result 102 k/mm3 (150-375); Red Blood Count 3.42 M/mm3 (4.6-6.20); Red Cell Distribution Width 16.2 % (11.5-14.5); White Blood Count 12.7 K/mm3 (4.5-10.0)
[2020-05-29 05:45] LABS: Anion Gap 6 mmol/L (8-16); Blood Urea Nitrogen 57 mg/dL (9-20); Calcium 9.2 mg/dL (8.4-10.2); Carbon Dioxide 33 mmol/L (22-30); Chloride 106 mmol/L (98-107); Estimated CRCL calculation 21 ml/min; Estimated Glomerular Filt Rate 42; Glucose 107 mg/dL (75-110); Magnesium 2.2 mg/dL (1.6-2.3); Potassium 3.5 mmol/L (3.4-5.0); Sodium 145 mmol/L (137-145)
[2020-05-29 08:30] LABS: Troponin I 0.158 ng/mL (0.000-0.034)
--- NOTE | 2020-05-29 09:04 | PM.IMPN ---
Progress Note: A&P Assessment and Plan (1) Unresponsive episode: Code(s): R41.89 - Other symptoms and signs involving cognitive functions and awareness Status: Acute Assessment and Plan: Syncope vs. seizure. Per reports it sounds the episode was brief. Was admitted for a seizure 2 weeks ago. Telemetry with no acute abnormalities. CT brain without acute changes. Continue IV hydration. Continue Keppra and continue seizure precautions. Seems at baseline this AM. (2) DION (acute kidney injury): Code(s): N17.9 - Acute kidney failure, unspecified Status: Acute Assessment and Plan: Improving; Cr improved to 1.6 from 2.1 yesterday. Suspect secondary to acute dehydration. Continue IV hydration for now. Monitor BMP. Hold oral lasix for now and monitor fluid status. Avoid other nephrotoxic agents. (3) Elevated lactic acid level: Code(s): R79.89 - Other specified abnormal findings of blood chemistry Status: Acute Assessment and Plan: Improved with IV fluids. Suspect secondary to dehydration. Does not appear to have a source of bacterial infection although awaiting UA. (4) Leukocytosis: Qualifiers: Leukocytosis type: unspecified Qualified Code(s): D72.829 - Elevated white blood cell count, unspecified Code(s): D72.829 - Elevated white blood cell count, unspecified Status: Acute Assessment and Plan: Improving. May be secondary to acute trauma for chest compressions. Afebrile. Monitor CBCd. (5) Elevated troponin: Code(s): R77.8 - Other specified abnormalities of plasma proteins Status: Acute Assessment and Plan: May be related to acute renal failure. Elevated but flat profile. Denies chest pain this morning. (6) Afib: Qualifiers: Atrial fibrillation type: unspecified Qualified Code(s): I48.91 - Unspecified atrial fibrillation Code(s): I48.91 - Unspecified atrial fibrillation Status: Chronic Assessment and Plan: Currently in a paced rhythm. Continue amiodarone, digoxin and eliquis. (7) Right hemiparesis: Code(s): G81.91 - Hemiplegia, unspecified affecting right dominant side Status: Chronic Assessment and Plan: Chronic secondary to history of CVA a few months ago, unchanged. (8) Hypothyroidism: Qualifiers: Hypothyroidism type: unspecified Qualified Code(s): E03.9 - Hypothyroidism, unspecified Code(s): E03.9 - Hypothyroidism, unspecified Status: Chronic Assessment and Plan: Continue home levothyroxine. (9) Benign prostatic hyperplasia: Qualifiers: Lower urinary tract symptom presence: unspecified whether lower urinary tract symptoms present Qualified Code(s): N40.0 - Benign prostatic hyperplasia without lower urinary tract symptoms Code(s): N40.0 - Benign prostatic hyperplasia without lower urinary tract symptoms Status: Chronic Assessment and Plan: Continue flomax. (10) Dysphagia: Code(s): R13.10 - Dysphagia, unspecified Status: Chronic Assessment and Plan: Chronic from CVA. Recent ST eval with modified barium swallow 05/12/20 recommended nectar thick liquids, will continue with that. (11) Failure to thrive in adult: Code(s): R62.7 - Adult failure to thrive Status: Chronic Assessment and Plan: Decreased oral intake with history of dysphagia and CVA. Diet supplements ordered. Subjective Date/t
[2020-05-29] MEDS: ISOSORBIDE MONONITRATE 30 MG TAB.ER.24H PO (10:27)
[2020-05-29] MEDS: levETIRAcetam ORAL SOL 500 MG/5 ML UDC PO ×2 (10:27→21:45)
[2020-05-29] MEDS: buPROPion HCL XL (24 HR) 150 MG TABCR PO (10:28)
[2020-05-29] MEDS: TAMSULOSIN HCL 0.4 MG CAPSULE PO (10:28)
[2020-05-29] MEDS: APIXABAN 2.5 MG TABLET PO ×2 (10:28→17:20)
[2020-05-29] MEDS: PANTOPRAZOLE 40 MG TABLET PO (10:28)
[2020-05-29] MEDS: LEVOTHYROXINE SODIUM 50 MCG TABLET PO (10:29)
--- NOTE | 2020-05-29 11:00 | PC.NURSE ---
Update given to RN at [facility]. Per her the patient was without a pulse when CPR was started last night. She verified that a few compressions were given when patient came to.
--- NOTE | 2020-05-29 13:46 | PC.NURSE ---
This patient, Wagner Garland, was received from IMU on 05/29/20 at 1340. Patient/family oriented to unit policies and routines
--- NOTE | 2020-05-29 13:51 | PC.NURSE ---
This patient, Wagner Garland, was transferred to [[id number]] on 05/29/20 at 1333. Personal belongings sent with patient. Report given to [DILAN Petty]. Appropriate documentation sent with patient.
[2020-05-29 15:58] LABS: Add Urine Microscopic? YES; Appearance Urine Clear (Clear); Bacteria Urine Trace /hpf; Bilirubin Urine Negative (Negative); Blood Urine Negative (Negative); Color Urine Yellow (Yellow); Glucose Urine UA Negative (Negative); Ketones Urine Negative (Negative); Leukocyte Esterase Ur Negative LEU/UL (Negative); Mucus Urine Rare /lpf; Nitrate Urine Negative (Negative); Protein Urine 1+ mg/dL (Negative); RBC Urine 0-2 /hpf (0-2); Specific Grav Ur 1.021 (1.001-1.035); Squamous Epithelial Cell Urine Rare /hpf (Few); Urobilinogen Urine Negative mg/dL (<2.0)
[2020-05-29] MEDS: ATORVASTATIN 40 MG TABLET PO (21:45)
[2020-05-29] MEDS: LACTATED RINGERS 1,000 ML 100 ML IV CONT (21:45)
[2020-05-30 04:27] VITALS: BP 113/57; PULSE 70; RESP 18; TEMP 36.5; O2SAT 96
[2020-05-30 06:25] LABS: Basophils Percent Auto 0.2 % (0.2-1.2); Eosinophils Absolute Auto 0.1 K/mm3 (0-0.3); Eosinophils Percent Auto 0.7 % (0-4.4); Hematocrit 27.5 % (42.0-52.0); Hemoglobin 8.5 g/dL (14.0-18.0); Immature Platelet Fraction Pct 2.4 % (0.9-11.2); Lymphocytes Absolute Auto 0.72 K/mm3 (0.9-3.2); Mean Corpuscular HGB Conc 30.9 g/dl (32-36); Mean Corpuscular Hemoglobin 28.7 pg (26-34); Mean Corpuscular Volume 92.9 fl (80-100); Mean Platelet Volume 10.7 fl (7.4-10.4); Monocytes Absolute Auto 1.1 K/mm3 (0.1-0.6); Monocytes Percent Auto 10.9 % (2.6-8.5); Neutrophils Absolute Auto 8.2 K/mm3 (1.3-6.7); Neutrophils Percent Auto 80.2 % (45.5-73.1); Platelet Count Result 92 k/mm3 (150-375); Red Blood Count 2.96 M/mm3 (4.6-6.20); Red Cell Distribution Width 16.3 % (11.5-14.5); White Blood Count 10.2 K/mm3 (4.5-10.0)
[2020-05-30] MEDS: LEVOTHYROXINE SODIUM 50 MCG TABLET PO (06:28)
[2020-05-30] MEDS: LACTATED RINGERS 1,000 ML 100 ML IV CONT (06:28)
[2020-05-30 06:37] LABS: Alanine Aminotransferase 17 U/L (4-50); Albumin Level 2.4 g/dL (3.5-5.1); Alkaline Phosphatase 75 U/L (38-126); Anion Gap 2 mmol/L (8-16); Aspartate Amino Transferase 30 U/L (17-59); Blood Urea Nitrogen 44 mg/dL (9-20); Calcium 8.7 mg/dL (8.4-10.2); Carbon Dioxide 32 mmol/L (22-30); Chloride 107 mmol/L (98-107); Estimated CRCL calculation 35 ml/min; Estimated Glomerular Filt Rate > 60; Glucose 103 mg/dL (75-110); Potassium 3.2 mmol/L (3.4-5.0); Sodium 141 mmol/L (137-145)
[2020-05-30 08:00] VITALS: PULSE 70; RESP 18; O2SAT 96
[2020-05-30] MEDS: TAMSULOSIN HCL 0.4 MG CAPSULE PO (08:09)
[2020-05-30 08:10] VITALS: PULSE 70
[2020-05-30] MEDS: PANTOPRAZOLE 40 MG TABLET PO (08:10)
[2020-05-30] MEDS: DIGOXIN TAB 125 MCG TABLET PO (08:10)
[2020-05-30] MEDS: ISOSORBIDE MONONITRATE 30 MG TAB.ER.24H PO (08:10)
[2020-05-30] MEDS: buPROPion HCL XL (24 HR) 150 MG TABCR PO (08:10)
[2020-05-30] MEDS: levETIRAcetam ORAL SOL 500 MG/5 ML UDC PO (08:10)
[2020-05-30] MEDS: APIXABAN 2.5 MG TABLET PO ×2 (08:10→16:33)
[2020-05-30 09:24] VITALS: PULSE 70
[2020-05-30] MEDS: AMIODARONE HCL 200 MG TABLET PO (09:24)
--- NOTE | 2020-05-30 10:40 | PCPTNOTE ---
Attempted PT treatment this a.m. - pt refusing. Will try again later.
--- NOTE | 2020-05-30 13:13 | PM.DS ---
DS: Admitting Diagnosis Admitting Diagnosis Admitting Diagnosis: Unresponsive episode DS: Discharge Diagnosis Discharge Diagnosis (1) Unresponsive episode: Code(s): R41.89 - Other symptoms and signs involving cognitive functions and awareness Status: Acute Assessment and Plan: Date of Admission 05/28/20 Date of Discharge/DOS 05/30/20 Mr. 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 It was reported that nursing staff was about to start an IV when the patient reportedly went unresponsive. CPR was started, after only a few compressions he awoke and returned to baseline. It is unclear if patient ever lost a pulse. He is known to nod yes or no appropriately to questions and he does nod yes to having chest pain. Routine labs demonstrate acute kidney injury suspected due to dehydration. He has residual dysphagia from recent CVA and admits he has not been eating or drinking much. He remains on a minced/moist and mildly nectar thickened liquids diet based on recommendations from a recent modified barium swallow 2 weeks ago. He was treated with IV fluids, his oral lasix was briefly held and renal function improved. Troponins were mildly elevated but remained with a flat profile and troponin leak was felt to be secondary to acute renal failure. Paced rhythm maintained on his home amiodarone, digoxin and Eliquis. CT brain showed evidence of chronic small vessel ischemic disease without acute intracranial abnormality. He was maintained on seizure precautions. Day of discharge he nodded no when asked if he had chest pain. He appears back at his baseline and is hemodynamically stable for discharge back to SNF with instructions for PCP follow up. He was recently discharged 05/13/20 at which time he was treated for pneumonia, possible aspiration PNA. He was discharged 05/13 to continue ten more days of oral antibiotics on Augmentin and doxycycline, should have completed 05/23/20 however they remain on his home medication list. Patient has no shortness of breath, cough, or fever. CXR shows improvement of right infiltrates. A mild leukocytosis is noted and felt may be related to stress reaction after compressions, has improved. It is not felt he needs any further antibiotics at this time. Syncope vs. seizure. Per reports it sounds the episode was brief. Was admitted for a seizure 2 weeks ago. Telemetry with no acute abnormalities. CT brain without acute changes. Improved with IV hydration. Continue Keppra and continue seizure precautions. Seems at baseline this AM. (2) DION (acute kidney injury): Code(s): N17.9 - Acute kidney failure, unspecified Status: Resolved Assessment and Plan: Resolved with IV hydration; Cr improved to 1.1 from 2.1 on arrival. Suspect secondary to acute dehydration. (3) Elevated lactic acid level: Code(s): R79.89 - Other specified abnormal findings of blood chemistry Status: Acute Assessment and Plan: Improved with IV fluids. Suspect secondary to dehydration. Does not appear to have a source of bacterial infection. Recently treated pneumonia. UA is negative. (4) Leukocytosis: Qualifiers: Leukocytosis type: unspecified Qualified Code(s): D72.829 - Elevated white blood cell count, unspecified Code(s): D72.829 - Elevated white blood cell count, unspecified Status: Acute Assessment and Plan: Improving. May be secondary to acute trauma for chest compre
[2020-05-30 14:00] VITALS: BP 106/39; PULSE 83; RESP 16; TEMP 36.2; O2SAT 100
[2020-05-30 17:14] LABS: IFOB Positive Control Positive; Immunochemical Fecal Occult Bl Negative (N)
[2020-05-30 18:14] VITALS: O2SAT 95
--- NOTE | 2020-06-03 09:56 | PC.NURSE ---
Blood cx are negative
== END 2020-05-30 19:55 | DRG 683 ==
LOC: ANHED 17:25 → ANHIMU 20:16 → ANH3MED 05-30 13:13 → ANHIMU 06-03 06:14
PROVIDERS: Family Medicine; Admitting Provider Internal Medicine; Emergency Provider Emergency Medicine; PCP Internal Medicine; Visit Provider Physician Assistant
DX: N17.9 Acute kidney failure, unspecified (principal); I69.351 Hemiplegia and hemiparesis following cerebral infarction affecting right dominant side; I48.20 Chronic atrial fibrillation, unspecified; R55 Syncope and collapse; R41.89 Other symptoms and signs involving cognitive functions and awareness; R56.9 Unspecified convulsions; R79.89 Other specified abnormal findings of blood chemistry; D72.829 Elevated white blood cell count, unspecified; E03.9 Hypothyroidism, unspecified; N40.0 Benign prostatic hyperplasia without lower urinary tract symptoms; I25.10 Atherosclerotic heart disease of native coronary artery without angina pectoris; R13.10 Dysphagia, unspecified; R62.7 Adult failure to thrive; R40.4 Transient alteration of awareness; E86.0 Dehydration; Z87.01 Personal history of pneumonia (recurrent); I69.391 Dysphagia following cerebral infarction; R13.19 Other dysphagia; I69.320 Aphasia following cerebral infarction; Z79.01 Long term (current) use of anticoagulants; Z85.828 Personal history of other malignant neoplasm of skin; Z95.0 Presence of cardiac pacemaker
CPT/HCPCS: 36415; 70450; 71045; 80048; 80053; 81001; 82274; 83605; 83735; 84484; 85025; 85055; 85610; 85730; 87040; 93005; 96360; 96361; 97161; 97165; 99285; A9270; J0456; J0696; J3480; J7030; J7120

== ENCOUNTER 2020-05-31 12:55 | Inpatient (IN) | payer MEDICARE, SELFPAY ==
[2020-05-31] VITALS (16 sets, daily range): BP systolic 115–150; BP diastolic 47–54; PULSE 68–78; RESP 13–20; TEMP 36.2–36.7; O2SAT 97–100; BMI 15.7
--- NOTE | ~2020-05-31 | XR_ITS ---
EXAMINATION: XR chest 2V DATE: 05/31/2020 13:45 INDICATION: Chest pain. TECHNIQUE: Frontal and lateral views of the chest were obtained. COMPARISON: Chest single view 05/28/2020, chest 2 views 10/30/2003 FINDINGS: There are airspace opacities in right lower lobe. There is a chronic small right pleural ef fusion versus pleural thickening. No pneumothorax. The heart size is normal. Median sternotomy wires and mediastinal surgical clips are seen, likely from prior coronary artery bypass grafting. There is a left chest pacer/defibrillator with leads in right atrium, right ventricle, and coronary sinus. IMPRESSION: 1. Stable airspace opacities in right lower lobe, consistent with pneumonia. 2. Chronic small right pleural effusion versus pleural thickening. Reviewed, dictated and finalized at location A. EMIC COACH
--- NOTE | ~2020-05-31 | CT_ITS ---
EXAMINATION: CTA chest PE protocol EXAM DATE: 06/02/2020 00:21 INDICATION: Chest pain elevated ddimer. TECHNIQUE: Spiral CTA of the chest (pulmonary arteries) was performed with 100 cc Omnipaque 350 intr avenous contrast injection. Images were acquired during the pulmonary arterial phase. Coronal maxi mum intensity projection 3D-reconstructions were created by the technologist on dedicated workstation . Axial, coronal and sagittal reformatted images were reviewed. The dose-length product (DLP) for t his examination was 400.91 mGy-cm. The exposure was tailored according to patient size (auto mA exp osure control), and iterative reconstruction (ASIR) was used as additional dose reduction technique. There is no prior study for comparison. FINDINGS: Pulmonary arteries are well opacified and without intraluminal filling defects. No thora cic aortic dissection. There is multi segmental right lower lobe, smaller amount of right upper lobe acute airspace disease, appearance most consistent with pneumonia. Diffusely thick-walled and proba pauly loculated right posterior sulcus effusion. Tracheobronchial tree is patent. There is no medias tinal, hilar or axillary lymphadenopathy. There is no pneumothorax. The main, central pulmonary ar teries are dilated which can indicate elevated pulmonary arterial pressure, pulmonary arterial hypert ension. Heart normal in size. There are sternotomy wires, and cardiac/coronary surgical changes. Correlate with prior history. Cholelithiasis. There is mild thoracic spondylosis without osteoblas tic or osteolytic lesions identified. IMPRESSION: 1. Multi segmental right lower lobe pneumonia. 2. Small loculated right pleural effusion, with wall thickening raising possibility of empyema or ma lignant pleural effusion. Chronic pleural benign effusion can also cause pleural thickening. 3. Dilated nonthrombosed pulmonary arteries. Reviewed, dictated and finalized at location B. D TRAINING MANAGER IMPRESSION: 1. Multi segmental right lower lobe pneumonia. 2. Small loculated right pleural effusion, with wall thickening raising possib ility of empyema or malignant pleural effusion. Chronic pleural benign effusion can also cause pleural thickening. 3. Dilated nonthrombosed pulmonary arteries.
--- NOTE | 2020-05-31 13:02 | ECG_ITS ---
Measurements Intervals [place] Rate: 70 P: MA: 0 QRS: 254 QRSD: 158 T: 83 QT: 466 QTc: 503 Interpretive Statements ELECTRONIC VENTRICULAR PACEMAKER BASELINE ARTIFACT- V6 NO FURTHER INTERPRETATION IS POSSIBLE ATYPICAL ECG Electronically Signed On 05-31-2020 15:30:50 DIRECTOR OF ACCOUNTS RECEIVABLE by Antoine Carrasco D.O.
[2020-05-31 13:22] LABS: Basophils Percent Auto 0.1 % (0.2-1.2); Eosinophils Absolute Auto 0.1 K/mm3 (0-0.3); Eosinophils Percent Auto 0.8 % (0-4.4); Hematocrit 32.6 % (42.0-52.0); Hemoglobin 10.1 g/dL (14.0-18.0); Immature Granulocyte Absolute 0.09 K/mm3 (0.00-0.031); Immature Granulocyte Percent A 1.2 % (0-0.5); Lymphocytes Absolute Auto 0.72 K/mm3 (0.9-3.2); Lymphocytes Percent Auto 9.6 % (18.3-44.2); Mean Corpuscular Hemoglobin 29.6 pg (26-34); Mean Corpuscular Volume 95.6 fl (80-100); Mean Platelet Volume 10.3 fl (7.4-10.4); Monocytes Absolute Auto 0.8 K/mm3 (0.1-0.6); Monocytes Percent Auto 11.1 % (2.6-8.5); Neutrophils Absolute Auto 5.8 K/mm3 (1.3-6.7); Neutrophils Percent Auto 77.2 % (45.5-73.1); Platelet Count Result 94 k/mm3 (150-375); Red Blood Count 3.41 M/mm3 (4.6-6.20); Red Cell Distribution Width 16.1 % (11.5-14.5); White Blood Count 7.5 K/mm3 (4.5-10.0)
--- NOTE | 2020-05-31 13:30 | ED.GENADULT ---
HPI - General Adult General Chief complaint: Chest Pain Stated complaint: chest pain Time Seen by Provider: 05/31/20 13:04 Source: patient History of Present Illness HPI narrative: Patient is a 80 y/o male sent from [place] for chest pain. He is a poor historian and having difficulty providing much history. He points to mid sternal area when asked about the location of his chest pain. He rates his pain as 5/10. There is no alleviating or exacerbating factor. He denies any cough or SOB. Related Data Home Medications Medication Instructions Recorded Confirmed atorvastatin 40 mg PO HS 05/09/20 05/29/20 cholecalciferol (vitamin D3) 1,250 mcg PO WEEKLY 05/09/20 05/28/20 furosemide [Lasix] 20 mg PO DAILY 05/09/20 05/28/20 guaifenesin 200 mg PO TID 05/09/20 05/28/20 levothyroxine 50 mcg PO DAILY 05/09/20 05/28/20 pantoprazole 40 mg PO DAILY 05/09/20 05/28/20 spironolactone 25 mg PO DAILY 05/09/20 05/28/20 Eliquis 2.5 mg PO BID 05/10/20 05/28/20 Wellbutrin XL 150 mg PO DAILY 05/10/20 05/28/20 Allergies Allergy/AdvReac Type Severity Reaction Status Date / Time No Known Allergies Allergy Verified 05/31/20 17:08 Review of Systems Review of Systems: ROS unobtainable: Yes unobtainable due to mental status PMFSH Past Medical History Medical History Atrial fibrillation Benign prostatic hyperplasia Cerebrovascular accident (~03/19/20) 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 He had dysphagia at the outset however is now eating a regular diet after therapy. 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 Echocardiogram was unremarkable. Chronic anemia Coronary artery disease GI bleed (~03/04/20) Hospitalized at [facility]. EGD was unremarkable. Colonoscopy showed possible ischemic colitis of the sigmoid colon. Hypertension Hypothyroidism Skin cancer Surgical History Surgical History History of cardiac pacemaker in situ History of coronary artery bypass graft History of maze procedure Family History Family History Other Unknown family medical history Social History Social History Social History: The patient is currently at [facility] but prior to his stroke he was living in [place] with his and daughter. No alcohol, tobacco, or illicit substance use. His Evelyne is listed as his emergency contact. He is a full code. Smoking status: Never smoker Second hand tobacco smoke exposure: No Alcohol intake: former Substance use: never Substance use type: does not use Gender identity (if verbalized by the patient): Male Spiritual care concerns: No Exam Const: General: no acute distress and ill appearing Nutritional Appearance: thin Orientation/consciousness: oriented to person and confusion HENMT: Head: normocephalic Ears: external ears normal General nose exam: Normal external nose present Eyes: General: appearance normal, both eyes and all related structures Conjunctivae: conjunctivae normal Neck: Neck: normal visual inspection and full ROM Chest: Chest palpation & inspection: normal inspection of the chest and no tenderness Resp: Effort & Inspection: normal respiratory effort Auscultation: clear to auscultation bilaterally Cardio: Rate: regular rate Rhythm: regular rhythm GI: GI Palp: No abdominal tenderness and Yes Soft to palpation Skin: General skin exam: normal color and turgor normal Neuro: General: oriented to person, confusion and other (slow to respond) Cognition (Neuro): abnormal cognition Extrem: General: normal to inspection, full ROM and no pedal edema Psych: Appearanc
[2020-05-31 13:31] LABS: INR 1.7; Prothrombin Time 20.8 Seconds (11.1-14.7)
[2020-05-31 13:32] LABS: Partial Thromboplastin Time 45.8 SECONDS (22.3-36.8)
[2020-05-31 13:33] LABS: Anion Gap 4 mmol/L (8-16); Blood Urea Nitrogen 26 mg/dL (9-20); Calcium 8.9 mg/dL (8.4-10.2); Carbon Dioxide 32 mmol/L (22-30); Chloride 105 mmol/L (98-107); Estimated CRCL calculation 39 ml/min; Estimated Glomerular Filt Rate > 60; Glucose 108 mg/dL (75-110); Potassium 3.5 mmol/L (3.4-5.0); Sodium 141 mmol/L (137-145)
[2020-05-31 13:49] LABS: Troponin I 0.086 ng/mL (0.000-0.034)
[2020-05-31 14:51] LABS: D Dimer 0.49 ug/mL (<0.48)
--- NOTE | 2020-05-31 14:52 | PC.NURSE ---
Patient and his daughter called this RN in the room and expressed wishes to begin hospice care for the patient. This patient is awake, alert, and oriented. He tells me that he want's to begin hospice care. I notified the ED charge nurse and care coordination was called to the room to speak with patient and family. JESUS Hamm was also made aware of this patient's requests.
--- NOTE | 2020-05-31 15:30 | PC.NURSE ---
case management in room. discussing final details of hospice. no needs at this time.
--- NOTE | 2020-05-31 15:40 | PC.NURSE ---
received report from Ander KONG. patient and family were discussing hospice with case management. patient has decided to be admitted upstairs for treatment. patient at baseline neuro status since CVA. patient has aphasia and facial droop. 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 denies needs.
[2020-05-31 16:29] LABS: Troponin I 0.089 ng/mL (0.000-0.034)
--- NOTE | 2020-05-31 16:54 | PCCCNOTE ---
Patient and daughter interested in possible hospice down the road but not ready to 'give up' per patient at this time. Provided hospice list. Currently lives at [facility] and would like to go to daughter's home at [place] with Home Health. Was receiving PT//OT/ST at [facility]. Hx of multiple CVA, pt has expressive aphasia but when he speaks slowly he is able to get some things across. Provided a couple of Communication Board printouts to assist with communication. Pt currently has one daughter hospitalized/intubated at [place] who has covid. Since patient's was in contact with this daughter, she has been in quarantine. does not feel she can care for patient at home but daughter feels that she and her sig other would be able to care for patient with some assistance.
--- NOTE | 2020-05-31 17:25 | PC.NURSE ---
patient assigned to room 202. SBAR completed and faxed.
--- NOTE | 2020-05-31 17:45 | PC.NURSE ---
report given to Ni KONG.
--- NOTE | 2020-05-31 18:15 | ADMIMU ---
This patient, Wagner Garland, was admitted to IMU status, and placed in IMU Room 212-01. Patient/family oriented to hospital policies and general routines including ID bracelet, bed and alarms, visiting hours, pain management, procedures, bathroom and other care routines, personal items, smoking policy, room service/diet, and visiting hours. Valuables list has been completed. Information on how to activate the Rapid Response Team has been discussed. Patient/Family are encouraged to report perceived risks to care and to ask questions if they do not understand what they are told or what they should do.
--- NOTE | 2020-05-31 21:02 | PM.IMHP ---
H&P: HPI History of Present Illness Date/Time: 05/31/20 21:02 Chief Complaint: Chest pain Narrative: Wagner Garland is a 80 year old male who was admitted to our hospital service on 05/28/2020 due to a unresponsive episode. A brief period of CPR was performed on the patient after few compression is he woke and return back to baseline. He reportedly was under treatment for pneumonia. He is had a stroke and is aphasic and answers by shaking his head yes or no. The patient is telling me that he is having some midsternal chest pain. He comes from a [place] [facility] but he tells me it is not [facility]. The patient was treated with azithromycin again and Rocephin and IV fluid. The patient was discharged from here on 05/30/2020 which was yesterday. The patient was drinking midsternal moist and mildly nectar thickened liquids diet based on recommendations from a recent modified barium swallow earlier this month. For her covid 19 and placed on isolation. Patient's troponin today is 0.086 but 2 days ago it was 0.158. Patient's creatinine is back to normal now. The patient is electronically paced. His heart rates in the 70s. Patient was given aspirin in the emergency room. Patient is being admitted for observation due to his chest pain. Patient is being admitted to observation on the date of service of 05/31/2020 Review of Systems Review of Systems: ROS unobtainable: Yes unobtainable due to mental status (Nonverbal) Constitutional: Constitutional: Reports as per HPI and Reports no additional constitutional complaints Eyes: Eyes: Reports as per HPI and Reports no additional eye complaints ENT: Reports system reviewed and no additional complaints, except as documented and Reports Normal hearing present Cardiovascular: Cardiovascular: Reports no additional cardiovascular complaints Respiratory: Respiratory: Reports no additional respiratory complaints and Reports no additional respiratory complaints Gastrointestinal: Gastrointestinal: Reports as per HPI and Reports no additional gastrointestinal complaints Musculoskeletal: Musculoskeletal: Reports no additional musculoskeletal complaints Integumentary/Breasts: Skin/Breast: Reports system reviewed and no additional complaints, except as docu and Reports as per HPI Neurologic: Reports system reviewed and no additional complaints, except as documented, Reports as per HPI and Reports Normal hearing present Psychiatric: Psychiatric: Reports no additional psychiatric complaints and Reports as per HPI Endocrine: Endocrine: Reports no additional endocrine complaints Hematologic/Lymphatic: Hematologic/Lymphatic: Reports no additional hematologic/lymphatic complaints Allergic/Immunologic: Allergic/Immunologic: Reports no additional allergic/immunologic complaints [facility] Past Medical History Medical History (Updated 05/31/20 @ 21:11 by Sybil Corrales NP) Atrial fibrillation Benign prostatic hyperplasia Cerebrovascular accident (~03/19/20) 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 He had dysphagia at the outset however is now eating a regular diet after therapy. 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 Echocardiogram was unremarkable. Chronic anemia Coronary artery disease Depression GI bleed (~03/04/20) Hospitalized at [facility]. EGD was unremarkable. Colonoscopy showed possible ischemic colitis of the sigmoid colon. Hypertension Hypothyroidism Skin cancer Surgical History Surgical History History of cardiac pacemaker in situ History of coronary artery bypass graft History of maze procedure Family History Family History (Updated 05/31/20 @ 21:09 by Sybil Corrales NP) Father Heart disease Other Unknown family medical history
[2020-05-31] MEDS: APIXABAN 2.5 MG TABLET PO (22:30)
[2020-05-31] MEDS: guaiFENesin 200 MG/10 ML UDC PO (22:30)
[2020-05-31] MEDS: ATORVASTATIN 40 MG TABLET PO (22:30)
[2020-05-31] MEDS: levETIRAcetam ORAL SOL 500 MG/5 ML UDC PO (22:30)
[2020-05-31 23:53] LABS: Troponin I 0.075 ng/mL (0.000-0.034)
[2020-06-01] VITALS (17 sets, daily range): BP systolic 107–142; BP diastolic 47–63; PULSE 70–75; RESP 16–100; TEMP 35.9–36.6; O2SAT 70–100; BMI 16.5
[2020-06-01] MEDS: LEVOTHYROXINE SODIUM 75 MCG TABLET 50 MCG PO (06:19)
[2020-06-01] MEDS: AMIODARONE HCL 200 MG TABLET PO (09:33)
[2020-06-01] MEDS: FUROSEMIDE 20 MG TABLET PO (09:33)
[2020-06-01] MEDS: ISOSORBIDE MONONITRATE 30 MG TAB.ER.24H PO (09:35)
[2020-06-01] MEDS: PANTOPRAZOLE 40 MG TABLET PO ×2 (09:35→20:21)
[2020-06-01] MEDS: DIGOXIN TAB 125 MCG TABLET PO (09:35)
[2020-06-01] MEDS: SPIRONOLACTONE 25 MG TABLET PO (09:35)
[2020-06-01] MEDS: buPROPion HCL XL (24 HR) 150 MG TABCR PO (09:36)
[2020-06-01] MEDS: APIXABAN 2.5 MG TABLET PO ×2 (09:36→17:03)
[2020-06-01] MEDS: guaiFENesin 200 MG/10 ML UDC PO (09:36)
[2020-06-01] MEDS: levETIRAcetam ORAL SOL 500 MG/5 ML UDC PO ×2 (09:36→20:21)
[2020-06-01 10:13] LABS: Basophils Percent Auto 0.1 % (0.2-1.2); Eosinophils Absolute Auto 0.1 K/mm3 (0-0.3); Eosinophils Percent Auto 1.5 % (0-4.4); Hematocrit 28.8 % (42.0-52.0); Hemoglobin 9.1 g/dL (14.0-18.0); Immature Granulocyte Percent A 1.3 % (0-0.5); Lymphocytes Absolute Auto 0.75 K/mm3 (0.9-3.2); Mean Corpuscular HGB Conc 31.6 g/dl (32-36); Mean Corpuscular Hemoglobin 29.6 pg (26-34); Mean Corpuscular Volume 93.8 fl (80-100); Mean Platelet Volume 10.4 fl (7.4-10.4); Monocytes Absolute Auto 0.7 K/mm3 (0.1-0.6); Monocytes Percent Auto 9.5 % (2.6-8.5); Neutrophils Absolute Auto 5.8 K/mm3 (1.3-6.7); Neutrophils Percent Auto 77.6 % (45.5-73.1); Platelet Count Result 87 k/mm3 (150-375); Red Blood Count 3.07 M/mm3 (4.6-6.20); Red Cell Distribution Width 15.9 % (11.5-14.5); White Blood Count 7.5 K/mm3 (4.5-10.0)
[2020-06-01 10:30] LABS: Alanine Aminotransferase 36 U/L (4-50); Albumin Level 2.4 g/dL (3.5-5.1); Alkaline Phosphatase 79 U/L (38-126); Anion Gap 2 mmol/L (8-16); Aspartate Amino Transferase 45 U/L (17-59); Bilirubin,Total 0.9 mg/dL (0.2-1.3); Blood Urea Nitrogen 22 mg/dL (9-20); CRP 6.9 mg/dL (<1.0); Calcium 8.5 mg/dL (8.4-10.2); Carbon Dioxide 33 mmol/L (22-30); Chloride 102 mmol/L (98-107); Estimated CRCL calculation 43 ml/min; Estimated Glomerular Filt Rate > 60; Glucose 100 mg/dL (75-110); Magnesium 1.9 mg/dL (1.6-2.3); Potassium 3.7 mmol/L (3.4-5.0); Sodium 137 mmol/L (137-145)
--- NOTE | 2020-06-01 11:55 | PM.IMPN ---
Progress Note: A&P Assessment and Plan (1) Dysphagia: Code(s): R13.10 - Dysphagia, unspecified Status: Chronic Assessment and Plan: On dysphagia diet Aspiration precautions. (2) Failure to thrive in adult: Code(s): R62.7 - Adult failure to thrive Status: Chronic Assessment and Plan: Patient was at a NH Will go back to ID upon discharge. (3) Elevated troponin: Code(s): R77.8 - Other specified abnormalities of plasma proteins Status: Acute Assessment and Plan: Trops have been flat and now trending down. Doubtful of ACS (4) Chest pain: Qualifiers: Chest pain type: unspecified Qualified Code(s): R07.9 - Chest pain, unspecified Code(s): R07.9 - Chest pain, unspecified Status: Acute Assessment and Plan: Likely epigastric as patient was discharge on Doxycycline Have requested GI consult. (5) Hypertension: Qualifiers: Hypertension type: unspecified Qualified Code(s): I10 - Essential (primary) hypertension Code(s): I10 - Essential (primary) hypertension Status: Chronic Assessment and Plan: Continue to monitor. (6) Pneumonia: Qualifiers: Laterality: right Pneumonia type: due to unspecified organism Code(s): J18.9 - Pneumonia, unspecified organism Status: Acute Assessment and Plan: Infiltrate is stable on chest xr Continue current choice of antibiotics (7) Right hemiparesis: Code(s): G81.91 - Hemiplegia, unspecified affecting right dominant side Status: Chronic Assessment and Plan: PT/OT Fall precautions. (8) Afib: Qualifiers: Atrial fibrillation type: unspecified Qualified Code(s): I48.91 - Unspecified atrial fibrillation Code(s): I48.91 - Unspecified atrial fibrillation Status: Chronic Assessment and Plan: Stable Implanted Defibrillator in situ Continue to monitor Subjective Date/time seen: 06/01/20 11:55 Points towards the epigastric area. Review of Systems Review of Systems: Narrative: Unable to obtain as patient has expressive aphasia. Exam Narrative: Exam Narrative: Lying in bed. Const: General: other (Chronically ill looking.) Nutritional Appearance: cachectic Orientation/consciousness: patient oriented x3 Limitations: language barrier Other: Aphasia HENMT: Head: normal to inspection, normocephalic and other (Bitemporal muscle wasting.) General nose exam: Normal external nose present Face and sinus: normal facial exam Eyes: General: appearance normal, both eyes and all related structures Pupils: Equal, round and reactive pupils present EOM: EOMs intact bilaterally Neck: Neck: no lymphadenopathy, supple and no JVD Resp: Effort & Inspection: normal respiratory effort Auscultation: clear to auscultation bilaterally Cardio: Rate: regular rate Rhythm: regular rhythm GI: GI Palp: Yes Soft to palpation and Yes No hepatosplenomegaly present Skin: General skin exam: normal color Neuro: General: patient oriented x3 and Unable to assess gait Cognition (Neuro): normal cognition Speech: aphasia Extrem: General: no pedal edema Objective Data Vital Signs Vital Signs: Vital Signs - 24 hr 05/31/20 12:55 05/31/20 13:18 05/31/20 13:22 Temperature 98.0 F 97.1 F L Pulse Rate 70 70 70 Respiratory Rate 18 18 Blood Pressure 126/47 L 123/50 L Pulse Oximetry 100 100 100 05/31/20 14:30 05/31/20 15:58 05/31/20 16:04 Temperature 97.5 F L Pulse Rate 70 70 70 Respiratory Rate 17 13 Blood Pressure 122/48 L Pulse Oximetry 100 98 05/31/20 16:15 05/31/20 16:31 05/31/20 17:03 Temperature Pulse Rate 70 70 70 Respiratory Rate 18 16 16 Blood Pressure Pulse Oximetry 05/31/20 17:17 05/31/20 17:33 05/31/20 18:42 Temperature 97.3 F L Pulse Rate 70 70 69 Respiratory Rate 18 17 20 Blood Pressure 150/54 H Pulse Oximetry 100 05/31/20 20:00 05/31/20 21:2
[2020-06-01 16:54] LABS: SARS-CoV-2 RNA PCR Negative
[2020-06-01] MEDS: TAMSULOSIN HCL 0.4 MG CAPSULE PO (17:03)
--- NOTE | 2020-06-01 17:52 | WPDGICN ---
Assessment and Plan Assessment and plan (1) Chest pain: Qualifiers: Chest pain type: unspecified Qualified Code(s): R07.9 - Chest pain, unspecified Code(s): R07.9 - Chest pain, unspecified Status: Acute Assessment and Plan: he is special aspiration precaution diet given underlying neurological condition but recent MBSS swallow study reviewed and no obvious aspiration I will defer EGD, pain can also be explained by pneumonia, also noted use of oral abx that can cause esophagitis but will try medical management with ppi bid for now (2) Pneumonia: Qualifiers: Laterality: right Pneumonia type: due to unspecified organism Code(s): J18.9 - Pneumonia, unspecified organism Status: Acute Assessment and Plan: treatment by primary team (3) Abnormal chest x-ray: Code(s): R93.89 - Abnormal findings on diagnostic imaging of other specified body structures Status: Acute (4) Aphasia: Code(s): R47.01 - Aphasia Status: Acute (5) Stroke: Code(s): I63.9 - Cerebral infarction, unspecified Status: Acute (6) Dysphagia: Code(s): R13.10 - Dysphagia, unspecified Status: Chronic Assessment and Plan: speech therapy, aspiration precaution GI Consult Note Consult date/time: 06/01/20 17:52 Reason for consult: epigastric discomfort HPI: Wagner Garland is a 80 year old male with 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 He was brought here because midsternal chest pain and still was on antibiotics. During recent hospitalization had bedside swallow evaluation without aspiration but recommendations to have nectar thickened liquids diet. CXR showed stable airspace opacities in right lower lobe, consistent with pneumonia and chronic small right pleural effusion versus pleural thickening. No report of gib. He has aphasia and I cant not take history from him. 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 He had dysphagia at the outset however is now eating a regular diet after therapy. 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 Echocardiogram was unremarkable. Chronic anemia Coronary artery disease Depression GI bleed (~03/04/20) Hospitalized at [facility]. EGD was unremarkable. Colonoscopy showed possible ischemic colitis of the sigmoid colon. Hypertension Hypothyroidism Skin cancer Surgical History Surgical History History of cardiac pacemaker in situ History of coronary artery bypass graft History of maze procedure Family History Family History (Updated 05/31/20 @ 21:09 by Sybil Corrales NP) Father Heart disease Other Unknown family medical history Social History Social History (Updated 05/31/20 @ 21:10 by Sybil Corrales NP) Social History: The patient is currently at care center at [facility] but prior to his stroke he was living in [place] with his and daughter. No alcohol, tobacco, or illicit substance use. His Evelyne is listed as his emergency contact. He is a full code. Smoking status: Never smoker Second hand tobacco smoke exposure:
[2020-06-01] MEDS: ATORVASTATIN 40 MG TABLET PO (20:21)
--- NOTE | 2020-06-01 23:03 | PC.NURSE ---
This patient, Wagner Garland, was transferred to [ [id number]] on 06/01/20 at 2303. Personal belongings sent with patient. Report given to [Monalisa Villafana rn ]. Appropriate documentation sent with patient.
--- NOTE | 2020-06-01 23:47 | PC.NURSE ---
This patient, Wagner Garland, was received from [ ] on 06/01/20 at 2305. Patient oriented to unit policies and routines. Pt demonstrated appropriate use of callbell. Report recieved from Shannon chi.
--- NOTE | 2020-06-01 23:50 | PC.NURSE ---
Pt has an outstanding order for CT of chest with contrast. CT requesting to complete exam. Pt made aware and okay with completing tonight. Pt unable to sign consent due to weakness from stroke but able to understand consent and questions asked. Nils KONG and myself reviewed the consent with the patient at the beside. Pt is appropriate in his gestures and was able to provide consent to complete the procedure. Pt will be taken to CT by transporter.
--- NOTE | 2020-06-01 23:55 | PC.NURSE ---
To Radiology via bed with transporter. Pt sent with O@ at 3L.
--- NOTE | 2020-06-02 00:25 | PC.NURSE ---
Return from Radiology via bed witout incident. Pt settled back in room and callbell within reach.
[2020-06-02 05:18] VITALS: BP 99/41; PULSE 70; RESP 20; TEMP 36.1; O2SAT 100
[2020-06-02] MEDS: LEVOTHYROXINE SODIUM 50 MCG TABLET PO (06:17)
[2020-06-02] MEDS: ISOSORBIDE MONONITRATE 30 MG TAB.ER.24H PO (09:04)
[2020-06-02] MEDS: PANTOPRAZOLE 40 MG TABLET PO ×2 (09:04→20:41)
[2020-06-02] MEDS: FUROSEMIDE 20 MG TABLET PO (09:04)
[2020-06-02] MEDS: APIXABAN 2.5 MG TABLET PO ×2 (09:04→18:23)
[2020-06-02] MEDS: buPROPion HCL XL (24 HR) 150 MG TABCR PO (09:04)
[2020-06-02] MEDS: SPIRONOLACTONE 25 MG TABLET PO (09:04)
[2020-06-02] MEDS: guaiFENesin 200 MG/10 ML UDC PO ×3 (09:05→18:22)
[2020-06-02] MEDS: levETIRAcetam ORAL SOL 500 MG/5 ML UDC PO ×2 (09:05→20:40)
[2020-06-02] MEDS: TAMSULOSIN HCL 0.4 MG CAPSULE PO (09:37)
--- NOTE | 2020-06-02 12:11 | PM.IMPN ---
Progress Note: A&P Assessment and Plan (1) Dysphagia: Code(s): R13.10 - Dysphagia, unspecified Status: Chronic Assessment and Plan: On dysphagia diet Aspiration precautions. (2) Failure to thrive in adult: Code(s): R62.7 - Adult failure to thrive Status: Chronic Assessment and Plan: Patient was at a [facility] Will go back to [place] upon discharge. (3) Elevated troponin: Code(s): R77.8 - Other specified abnormalities of plasma proteins Status: Acute Assessment and Plan: Trops have been flat and now trending down. Doubtful of ACS (4) Chest pain: Qualifiers: Chest pain type: unspecified Qualified Code(s): R07.9 - Chest pain, unspecified Code(s): R07.9 - Chest pain, unspecified Status: Acute Assessment and Plan: Likely epigastric as patient was discharge on Doxycycline Have requested GI consult. (5) Hypertension: Qualifiers: Hypertension type: unspecified Qualified Code(s): I10 - Essential (primary) hypertension Code(s): I10 - Essential (primary) hypertension Status: Chronic Assessment and Plan: Continue to monitor. (6) Pneumonia: Qualifiers: Laterality: right Pneumonia type: due to unspecified organism Code(s): J18.9 - Pneumonia, unspecified organism Status: Acute Assessment and Plan: Infiltrate is stable on chest xr Continue current choice of antibiotics (7) Right hemiparesis: Code(s): G81.91 - Hemiplegia, unspecified affecting right dominant side Status: Chronic Assessment and Plan: PT/OT Fall precautions. (8) Afib: Qualifiers: Atrial fibrillation type: unspecified Qualified Code(s): I48.91 - Unspecified atrial fibrillation Code(s): I48.91 - Unspecified atrial fibrillation Status: Chronic Assessment and Plan: Stable Implanted Defibrillator in situ Continue to monitor Subjective Date/time seen: 06/02/20 12:11 Interval history: Patient is seen during the morning rounds today. Feeling slightly better, mild sob,no chest pain,mood stable. Review of Systems Review of Systems: ROS unobtainable: Yes unobtainable due to mental status (Nonverbal) Constitutional: Constitutional: Reports as per HPI and Reports no additional constitutional complaints Eyes: Eyes: Reports as per HPI and Reports no additional eye complaints ENT: Reports system reviewed and no additional complaints, except as documented and Reports Normal hearing present Cardiovascular: Cardiovascular: Reports no additional cardiovascular complaints Respiratory: Respiratory: Reports no additional respiratory complaints and Reports no additional respiratory complaints Gastrointestinal: Gastrointestinal: Reports as per HPI and Reports no additional gastrointestinal complaints Musculoskeletal: Musculoskeletal: Reports no additional musculoskeletal complaints Integumentary/Breasts: Skin/Breast: Reports system reviewed and no additional complaints, except as docu and Reports as per HPI Neurologic: Reports system reviewed and no additional complaints, except as documented, Reports as per HPI and Reports Normal hearing present Psychiatric: Psychiatric: Reports no additional psychiatric complaints and Reports as per HPI Endocrine: Endocrine: Reports no additional endocrine complaints Hematologic/Lymphatic: Hematologic/Lymphatic: Reports no additional hematologic/lymphatic complaints Allergic/Immunologic: Allergic/Immunologic: Reports no additional allergic/immunologic complaints Exam Narrative: Exam Narrative: Lying in bed. Const: General: cooperative, healthy appearing, comfortable, no acute distress, well developed, alert, awake, Physically active and other (Chronically ill looking.) Nutritional Appearance: average body habitus, cachectic and thin Orientation/consciousness: oriented to person, oriented to place and patient oriented x3 Limitation
[2020-06-02 14:00] VITALS: BP 117/40; PULSE 69; RESP 16; TEMP 36.4; O2SAT 100
--- NOTE | 2020-06-02 18:13 | WPDGIPROGNO ---
Progress Note: A&P Assessment and Plan (1) Dysphagia: Code(s): R13.10 - Dysphagia, unspecified Status: Chronic Assessment and Plan: probably from recent CVA and aphasia continue with aspiration precaution no need to do egd now, reviewed MBS during recent hospitalization will follow from af[place], call if questions (2) Pneumonia: Qualifiers: Laterality: bilateral Lung location: unspecified part of lung Pneumonia type: due to unspecified organism Qualified Code(s): J18.9 - Pneumonia, unspecified organism Code(s): J18.9 - Pneumonia, unspecified organism Status: Acute Assessment and Plan: CT chest showed pneumonia, medical treatment by primary team (3) Aphasia: Code(s): R47.01 - Aphasia Status: Acute (4) Chest pain: Qualifiers: Chest pain type: unspecified Qualified Code(s): R07.9 - Chest pain, unspecified Code(s): R07.9 - Chest pain, unspecified Status: Acute Subjective Date/time seen: 06/02/20 18:13 Interval history: denies chest pain, still poor intake but no report of nausea or vomiting per nurse. Review of Systems Review of Systems: All systems reviewed & are unremarkable except as noted in HPI and below Exam Const: General: no acute distress HENMT: General nose exam: Normal nares present Neck: Neck: no JVD Resp: Auscultation: no wheezes and diminished lung sounds Cardio: Rate: regular rate GI: Inspection: non-distended GI Palp: Yes Soft to palpation, No Firmness to palpation present (GI) and No Tenderness to palpation present (GI) Auscultation: normal bowel sounds Skin: General skin exam: normal color Neuro: Other: aphasia, right arm weakness from previous cva Psych: Affect: Anxious affect present Objective Data Vital Signs Vital Signs: Vital Signs - 24 hr 06/01/20 19:56 06/01/20 20:00 06/01/20 21:56 Temperature 97.4 F L Pulse Rate 75 70 72 Respiratory Rate 18 18 Blood Pressure 142/63 H Pulse Oximetry 95 95 06/01/20 23:31 06/02/20 05:18 06/02/20 14:00 Temperature 97.5 F L 96.9 F L 97.5 F L Pulse Rate 70 70 69 Respiratory Rate 20 20 16 Blood Pressure 111/47 L 99/41 L 117/40 L Pulse Oximetry 100 100 100 Intake/Output Intake/Output: Intake & Output 05/30/20 05/31/20 06/01/20 06/02/20 23:59 23:59 23:59 23:59 Intake Total 120 150 530 Balance 120 150 530 Meds/Results Medications: Active Medications Generic Name Dose Route Start Last Admin Trade Name Freq PRN Reason Stop Dose Admin Amiodarone HCl 200 mg 06/01/20 09:00 06/01/20 09:33 Amiodarone Hcl 200 Mg Tablet PO 200 mg Q48H JULIA Administration Apixaban 2.5 mg 05/31/20 21:25 06/02/20 09:04 Apixaban 2.5 Mg Tablet PO 2.5 mg BID JULIA Administration Atorvastatin Calcium 40 mg 05/31/20 21:25 06/01/20 20:21 Atorvastatin 40 Mg Tablet PO 40 mg HS JULIA Administration Bupropion HCl 150 mg 06/01/20 09:00 06/02/20 09:04 Bupropion Hcl Xl (24 Hr) 150 Mg Tabcr PO 150 mg DAILY JULIA Administration Digoxin 125 mcg 06/01/20 09:00 06/01/20 09:35 Digoxin Tab 125 Mcg Tablet PO 125 mcg Q48H JULIA Administration Ergocalciferol 50,000 unit 06/10/20 09:00 Ergocalciferol 50,000 Unit Capsule PO We@0900 JULIA Furosemide 20 mg 06/01/20 09:00 06/02/20 09:04 Furosemide 20 Mg Tablet PO 20 mg DAILY JULIA Administration Guaifenesin 200 mg 05/31/20 21:25 06/02/20 12:48 Guaifenesin 200 Mg/10 Ml Udc PO 200 mg TID JULIA Administration Ceftriaxone Sodium/Dextrose 1 gm in 50 mls @ 100 mls/hr 06/02/20 12:10 06/02/20 13:19 Rocephin 1 Gm/D5w 50 Ml IVPB Infused Q24H JULIA Infusion Isosorbide Mononitrate 30 mg 06/01/20 09:00 06/02/20 09:04 Isosorbide Mononitrate 30 Mg Tab.Er.24h PO 30 mg DAILY JULIA Administration Levetiracetam 500 mg 05/31/20 21:25 06/02/20 09:05 Levetiracetam Oral Nyasia 500 Mg/5 Ml Udc PO 500 mg Q12HR JULIA Administration Levothyrox
[2020-06-02] MEDS: ATORVASTATIN 40 MG TABLET PO (20:40)
[2020-06-02 20:41] VITALS: BP 108/91; PULSE 70; RESP 18; TEMP 36.3; O2SAT 100
[2020-06-03 05:13] VITALS: BP 105/46; PULSE 68; RESP 18; TEMP 36.1; O2SAT 100
[2020-06-03] MEDS: LEVOTHYROXINE SODIUM 50 MCG TABLET PO (06:07)
[2020-06-03] MEDS: AMIODARONE HCL 200 MG TABLET PO (08:56)
[2020-06-03 08:57] VITALS: PULSE 68
[2020-06-03] MEDS: DIGOXIN TAB 125 MCG TABLET PO (08:57)
[2020-06-03] MEDS: buPROPion HCL XL (24 HR) 150 MG TABCR PO (08:57)
[2020-06-03] MEDS: APIXABAN 2.5 MG TABLET PO (08:57)
[2020-06-03] MEDS: levETIRAcetam ORAL SOL 500 MG/5 ML UDC PO (08:58)
[2020-06-03] MEDS: guaiFENesin 200 MG/10 ML UDC PO (08:58)
[2020-06-03] MEDS: ISOSORBIDE MONONITRATE 30 MG TAB.ER.24H PO (08:58)
[2020-06-03] MEDS: FUROSEMIDE 20 MG TABLET PO (08:58)
[2020-06-03] MEDS: PANTOPRAZOLE 40 MG TABLET PO (08:59)
[2020-06-03] MEDS: TAMSULOSIN HCL 0.4 MG CAPSULE PO (08:59)
[2020-06-03] MEDS: SPIRONOLACTONE 25 MG TABLET PO (08:59)
--- NOTE | 2020-06-03 09:07 | PM.DS ---
DS: Admitting Diagnosis Admitting Diagnosis Admitting Diagnosis: Admitting diagnosis 1. Dysphagia 2. Chest pain 3. Failure to thrive 4. Pneumonia 5. Hypertension DS: Discharge Diagnosis Discharge Diagnosis (1) Dysphagia: Code(s): R13.10 - Dysphagia, unspecified Status: Chronic Assessment and Plan: On dysphagia diet Aspiration precautions. On dysphagia diet Aspiration precautions. (2) Failure to thrive in adult: Code(s): R62.7 - Adult failure to thrive Status: Chronic Assessment and Plan: Patient was at a OR Will go back to OR upon discharge. Patient was at a OR Will go back to OR upon discharge. (3) Elevated troponin: Code(s): R77.8 - Other specified abnormalities of plasma proteins Status: Acute Assessment and Plan: Trops have been flat and now trending down. Doubtful of ACS Trops have been flat and now trending down. Doubtful of ACS (4) Chest pain: Qualifiers: Chest pain type: unspecified Qualified Code(s): R07.9 - Chest pain, unspecified Code(s): R07.9 - Chest pain, unspecified Status: Acute Assessment and Plan: Likely epigastric as patient was discharge on Doxycycline Have requested GI consult. Likely epigastric as patient was discharge on Doxycycline Have requested GI consult. (5) Hypertension: Qualifiers: Hypertension type: unspecified Qualified Code(s): I10 - Essential (primary) hypertension Code(s): I10 - Essential (primary) hypertension Status: Chronic Assessment and Plan: Continue to monitor. Continue to monitor. (6) Pneumonia: Qualifiers: Laterality: right Pneumonia type: due to unspecified organism Code(s): J18.9 - Pneumonia, unspecified organism Status: Acute Assessment and Plan: Infiltrate is stable on chest xr Continue current choice of antibiotics Infiltrate is stable on chest xr Continue current choice of antibiotics (7) Right hemiparesis: Code(s): G81.91 - Hemiplegia, unspecified affecting right dominant side Status: Chronic Assessment and Plan: PT/OT Fall precautions. PT/OT Fall precautions. (8) Afib: Qualifiers: Atrial fibrillation type: unspecified Qualified Code(s): I48.91 - Unspecified atrial fibrillation Code(s): I48.91 - Unspecified atrial fibrillation Status: Chronic Assessment and Plan: Stable Implanted Defibrillator in situ Continue to monitor Stable Implanted Defibrillator in situ Continue to monitor DS: Summary Hospital Course Reason for hospitalization: 1. Dysphagia 2. Chest pain 3. Hypertension 4. Pneumonia 5. Failure to thrive Hospital Course: Narrative: Wagner Garland is a 80 year old male who was admitted to our hospital service on 05/28/2020 due to a unresponsive episode. A brief period of CPR was performed on the patient after few compression is he woke and return back to baseline. He reportedly was under treatment for pneumonia. He is had a stroke and is aphasic and answers by shaking his head yes or no. The patient is telling me that he is having some midsternal chest pain. He comes from a [facility] but he tells me it is not [place]. The patient was treated with azithromycin again and Rocephin and IV fluid. The patient was discharged from here on 05/30/2020 which was yesterday. The patient was drinking midsternal moist and mildly nectar thickened liquids diet based on recommendations from a recent modified barium swallow earlier this month. For her covid 19 and placed on isolation. Patient's troponin today is 0.086 but 2 days ago it was 0.158. Patient's creatinine is back to normal now. The patient is electronically paced. His heart rates in the 70s. Patient was given aspirin in the emergency room. Patient is being admitted for observation due to his chest pain. Patient is being admitted to observation on the date of service of 05/31/2020. Elise
[2020-06-03 09:45] VITALS: O2SAT 100
== END 2020-06-03 14:10 | DRG 194 ==
LOC: ANHED 17:58 → ANHIMU 17:58 → ANHTRC 06-01 23:02
PROVIDERS: General Practice; Nurse Practitioner; Admitting Provider Internal Medicine; Emergency Provider Emergency Medicine; PCP Internal Medicine; Visit Provider Internal Medicine
DX: J18.9 Pneumonia, unspecified organism (principal); I69.951 Hemiplegia and hemiparesis following unspecified cerebrovascular disease affecting right dominant side; R62.7 Adult failure to thrive; Z20.828 Contact with and (suspected) exposure to other viral communicable diseases; R10.13 Epigastric pain; R13.10 Dysphagia, unspecified; I69.920 Aphasia following unspecified cerebrovascular disease; I25.10 Atherosclerotic heart disease of native coronary artery without angina pectoris; R77.8 Other specified abnormalities of plasma proteins; E03.9 Hypothyroidism, unspecified; I10 Essential (primary) hypertension; N40.0 Benign prostatic hyperplasia without lower urinary tract symptoms; F32.9 Major depressive disorder, single episode, unspecified; I48.91 Unspecified atrial fibrillation; Z79.899 Other long term (current) drug therapy; Z95.0 Presence of cardiac pacemaker; Z95.1 Presence of aortocoronary bypass graft
CPT/HCPCS: 36415; 71046; 71275; 80048; 80053; 82728; 83735; 84443; 84484; 85025; 85380; 85610; 85730; 86140; 87635; 93005; 96374; 99285; A9270; C9803; G0378; J0696; Q9967; U0003